=== PATIENT | male | born 1960 | race Caucasian/White ===

== ENCOUNTER 2020-04-08 12:13 | Outpatient (CLI) | payer OTHER, SELFPAY ==
--- NOTE | ~2020-04-08 | XR_ITS ---
EXAMINATION: XR knee LT min 4V DATE: 04/08/2020 12:52 INDICATION: Left knee pain. TECHNIQUE: 3 views of left knee were obtained. COMPARISON: None. FINDINGS: Bone alignment is normal. No fracture. There is mild left knee osteoarthritis. There are lo ose bodies in the knee joint measuring up to 3 mm. IMPRESSION: 1. Mild left knee osteoarthritis. 2. Left knee joint loose bodies. Reviewed, dictated and finalized at location A.
--- NOTE | ~2020-04-08 | XR_ITS ---
EXAMINATION: XR hip LT min 2V DATE: 04/08/2020 12:56 INDICATION: Left hip pain. TECHNIQUE: 2 views of left hip were obtained. COMPARISON: Left hip radiographs 08/23/2015 FINDINGS: Bone alignment is normal. No fracture. There is mild left hip osteoarthritis. There is mode rate lumbar spondylosis. IMPRESSION: 1. Mild left hip osteoarthritis. Reviewed, dictated and finalized at location A.
--- NOTE | ~2020-04-08 | XR_ITS ---
EXAMINATION: XR knee RT min 4V DATE: 04/08/2020 12:52 INDICATION: Right knee pain. TECHNIQUE: 3 views of right knee were obtained. COMPARISON: None. FINDINGS: Bone alignment is normal. No fracture. There is mild tricompartmental osteoarthritis. No kn ee joint effusion. IMPRESSION: 1. Mild right knee osteoarthritis. Reviewed, dictated and finalized at location A.
== END 2020-04-08 12:14 | disposition home or self-care (01) ==
PROVIDERS: PCP Internal Medicine; Visit Provider Internal Medicine
DX: M25.552 Pain in left hip (principal); M25.562 Pain in left knee; M25.561 Pain in right knee
CPT/HCPCS: 73502; 73564

== ENCOUNTER 2020-05-12 09:40 | Outpatient (CLI) | payer OTHER, SELFPAY ==
--- NOTE | ~2020-05-12 | XR_ITS ---
XR knee LT min 4V 05/12/2020 10:40 Indication: Left knee pain Procedure: 4 views left knee Comparison: 04/08/2020 Findings: Mild osteoarthritis of the left knee. No fracture or traumatic malalignment. No significant joint effusion. No foreign bodies. Impression: 1: Mild osteoarthritis of the left knee. Reviewed, dictated and finalized at location A. 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
== END 2020-05-12 09:41 | disposition home or self-care (01) ==
LOC: CHSLAB 09:42
PROVIDERS: PCP Internal Medicine; Visit Provider Orthopaedic Surgery
DX: M25.562 Pain in left knee (principal)
CPT/HCPCS: 73564

== ENCOUNTER → 2022-10-27 08:34 | Outpatient (CLI) | payer OTHER, SELFPAY ==
--- NOTE | ~2022-10-27 | CT_ITS ---
EXAMINATION: CT sinus wo con DATE: 10/27/2022 08:47 INDICATION: Chronic sinusitis TECHNIQUE: Computed tomography (CT) of the paranasal sinuses was performed without intravenous contra st. The dose-length product was 308.32 mGy-cm. Automated exposure control and iterative reconstructio n technique were employed. COMPARISON: None FINDINGS: Sinuses are pneumatized. Minimal mucosal thickening of the left maxillary antrum. Remainder of the sinuses are unremarkable.. Leftward nasal septal deviation. Ostiomeatal units are patent. Mas toids are pneumatized. IMPRESSION: 1. Mild left maxillary sinus disease. Reviewed, dictated and finalized at location L.
== END ==
PROVIDERS: PCP Otolaryngology; Visit Provider Otolaryngology
DX: J32.0 Chronic maxillary sinusitis (principal)
CPT/HCPCS: 70486

== ENCOUNTER 2022-12-28 15:22 | Outpatient (CLI) | payer OTHER, SELFPAY ==
--- NOTE | 2022-12-28 15:47 | ECG_ITS ---
Measurements Intervals [place] Rate: 54 P: 35 AK: 190 QRS: -20 QRSD: 109 T: 29 QT: 398 QTc: 380 Interpretive Statements SINUS BRADYCARDIA DELAYED PRECORDIAL R/S TRANSITION BASELINE ARTIFACT- I, II, III, AVR, AVL, AVF BORDERLINE ECG ABNORMAL ECG NO PREVIOUS ECG AVAILABLE FOR COMPARISON Electronically Signed On 12-28-2022 16:01:26 CDT by Noé Teresa D.O.
== END 2022-12-28 15:23 | disposition home or self-care (01) ==
LOC: ANHSURGERY 15:26
PROVIDERS: PCP Internal Medicine; Visit Provider Otolaryngology
DX: E78.5 Hyperlipidemia, unspecified (principal); Z01.818 Encounter for other preprocedural examination; R94.31 Abnormal electrocardiogram [ECG] [EKG]
CPT/HCPCS: 93005

== ENCOUNTER 2023-01-03 00:24 | Day surgery (SDC) | payer OTHER, SELFPAY ==
[2022-12-26 08:41] VITALS: BMI 28.7
--- NOTE | 2022-12-26 08:44 | PC.NURSE ---
Report to the Outpatient Waiting Room, entrance under the green pavilion located off [facility], at time 7:30 on date 01/03/23. Planned Procedure Time: 9:30. Time changes happen often and if your time is changed the preop area will call you the afternoon before. - You and your visitor will be asked to self-screen and do not enter if you have any COVID symptoms. - A mask is optional within the hospital at this time. Patients may have clear liquids (water, carbonated beverages, clear teas, apple juice) until 3 hours prior to surgery (6:30) with a maximum of 20 ounces. - No food from midnight until time of surgery Take the following medications with a SIP of water the morning of surgery: TYLENOL IF NEEDED DO NOT STOP ANY OF YOUR OTHER PRESCRIPTION MEDICATIONS PRIOR TO SURGERY ?EXCEPT THE FOLLOWING Medications to discontinue per physician: VITAMINS/SUPPLEMENTS Date to take last dose: 12/30/[address] COLLINS REGARDING DICLOFENAC Please no make-up, nail nauruan, hairspray, perfume, deodorant, or body powder the day of surgery. No jewelry (including any body piercings) or valuables the day of surgery, leave them at home. Please take a shower or bath the night before, or the morning of, surgery with an antibacterial soap. Wear comfortable, loose fitting clothing. - Jewelry must be removed prior to entering the operating room. Rings and piercings that are not removed may be cut off. - The hospital will not accept responsibility for valuables. - Please leave all valuables, including medications, at home the day of surgery. If you are going home after surgery, a licensed driver/sales workers must drive you home. - NO public transportation without another adult if you receive anesthesia. - We recommend that an adult stay with you for 24 hours following discharge. - We also recommend that you do not drive, make important decision, drink alcoholic beverages, or take any drugs that were not prescribed by your health care provider for at least 24 hours after your discharge time. Follow any additional instructions given to you from your surgeon. If you or anyone in your household have experienced Covid symptoms in the past week, please notify your surgeon or the nurse liaison at the phone number below for possible testing. Telephone instructions given to PT - RAFFAELE PATEL and asked if any additional questions and then verbalized understanding. Patient advised to call surgeon office or pre surgery nurse liaison [phone] if any additional questions.
--- NOTE | 2023-01-02 17:57 | PM.IMHP ---
H&P: HPI History of Present Illness Date/Time: 01/02/23 17:57 Chief Complaint: Septal deviation turbinate hypertrophy nasal obstruction nasal congestion chronic sinusitis Narrative: planned procedure Review of Systems Review of Systems: All systems reviewed & are unremarkable except as noted in HPI and below [facility] Past Medical History Medical History (Updated 09/07/22 @ 18:42 by Roddy Paez MD) Abscess, appendix 2016 or 2017 Left knee pain Seasonal allergies Wears glasses Family History Family History Other Family history of allergic disorder Social History Social History (Updated 09/07/22 @ 11:22 by SEBASTIEN Perla) Smoking packs per day: 0.5 Smoking cigarettes per day: 10.0 Years smoked: 3 Smoking pack-years: 1.50 Smoking status: Former smoker Tobacco type: cigarettes Smoking end date: 06/19/20 Alcohol intake: never Substance use: never Substance use type: does not use Lack of Transportation: No Lack of Food: Never True Current Housing: I Have Housing Concerned About Future Housing: No Difficulty Paying Gas/Electric Bills: No Difficulty Paying for Meds: No Currently Unemployed: No Education: Bachelor's Degree Difficulty w/ Childcare or Family Care: No Living arrangements: with family Occupation/Education: occupation Gender identity (if verbalized by the patient): Male Spiritual care concerns: No Meds Home Medications and Allergies Home Medications Medication Instructions Recorded Confirmed Type acetaminophen 650 mg 800 mg PO Q12H 09/07/22 12/26/22 History tablet,extended release ascorbate calcium (vitamin C) 500 500 mg PO DAILY 09/07/22 12/26/22 History mg tablet diclofenac sodium 75 mg 75 mg PO BID 09/07/22 12/26/22 History tablet,delayed release montelukast 10 mg tablet 10 mg PO DAILY 09/07/22 12/26/22 History multivitamin (Daily Multi-Vitamin 1 tablet PO DAILY 09/07/22 12/26/22 History tablet) simvastatin 10 mg tablet 10 mg PO DAILY 09/07/22 12/26/22 History Allergies Allergy/AdvReac Type Severity Reaction Status Date / Time No Known Allergies Allergy Verified 12/26/22 08:50 Exam Narrative: septal deviation turbinate hypertrophy Assessment and Plan Assessment and plan (1) Chronic sinusitis: Code(s): J32.9 - Chronic sinusitis, unspecified Status: Acute Assessment and Plan: plan or image guided left-sided maxillary antrostomy without tissue removal endoscopic assisted septoplasty inferior turbinate reduction with outfracture bilaterally. Risks were discussed including bleeding infection CSF leak brain brain damage change in vision chronic eye drainage blindness septal perforation failure to resolve symptoms need for further procedures of other sinuses become disease. Crusting for persistent follow-up need for follow-up. Time-out for time off school inherent risk narcotic use. (2) Recurrent sinusitis: Code(s): J32.9 - Chronic sinusitis, unspecified Status: Acute (3) Hypertrophy of both inferior nasal turbinates: Code(s): J34.3 - Hypertrophy of nasal turbinates Status: Acute (4) Nasal septal deviation: Code(s): J34.2 - Deviated nasal septum Status: Acute (5) Nasal congestion: Code(s): R09.81 - Nasal congestion Status: Acute (6) Nasal obstruction: Code(s): J34.89 - Other specified disorders of nose and nasal sinuses Status: Acute
[2023-01-03] VITALS (11 sets, daily range): BP systolic 111–138; BP diastolic 59–93; PULSE 43–69; RESP 12–18; TEMP 36.4–36.6; O2SAT 92–99
[2023-01-03] MEDS: LACTATED RINGERS 1,000 ML 30 ML IV CONT ×2 (06:49→10:52)
[2023-01-03] MEDS: ACETAMINOPHEN 500 MG TABLET 1000 MG PO (06:50)
--- NOTE | 2023-01-03 07:35 | P.PNAN_ITS ---
Anes - Initial Pre Proc Eval Procedure: Operation Date: 01/03/23 07:30 Proposed Procedures p Image Guided Bilateral Inferior Turbinectomy with Outfracture, Left Maxillary Antrostomy Without Tissue Removal - Roddy Paez MD s Endoscopic Septoplasty - Roddy Paez MD Date/Time: 01/03/23 07:35 Surgeon: Roddy Paez MD Pre Op Diagnosis: Chr Sinusitis Patient Data Age: 62 Gender: M Height: 1.87 m Weight: 100 kg Allergies Allergy/AdvReac Type Severity Reaction Status Date / Time No Known Allergies Allergy Verified 12/26/22 08:50 Home Medications Medication Instructions Recorded Confirmed Type acetaminophen 650 mg 800 mg PO Q12H 09/07/22 12/26/22 History tablet,extended release ascorbate calcium (vitamin C) 500 500 mg PO DAILY 09/07/22 12/26/22 History mg tablet diclofenac sodium 75 mg 75 mg PO BID 09/07/22 12/26/22 History tablet,delayed release montelukast 10 mg tablet 10 mg PO DAILY 09/07/22 12/26/22 History multivitamin (Daily Multi-Vitamin 1 tablet PO DAILY 09/07/22 12/26/22 History tablet) simvastatin 10 mg tablet 10 mg PO DAILY 09/07/22 12/26/22 History Patient hx anesthesia problems: none Family hx anesthesia problems: none Results Review: All pre-operative results and documents have been reviewed as part of the pre- operative evaluation. [facility] Past Medical History Medical History Abscess, appendix 2016 or 2017 Left knee pain Seasonal allergies Wears glasses Family History Family History Other Family history of allergic disorder Social History Social History Smoking packs per day: 0.5 Smoking cigarettes per day: 10.0 Years smoked: 3 Smoking pack-years: 1.50 Smoking status: Former smoker Tobacco type: cigarettes Smoking end date: 06/19/20 Alcohol intake: never Substance use: never Substance use type: does not use Lack of Transportation: No Lack of Food: Never True Current Housing: I Have Housing Concerned About Future Housing: No Difficulty Paying Gas/Electric Bills: No Difficulty Paying for Meds: No Currently Unemployed: No Education: Bachelor's Degree Difficulty w/ Childcare or Family Care: No Living arrangements: with family Occupation/Education: occupation Gender identity (if verbalized by the patient): Male Spiritual care concerns: No Anes - Eval Final PreProcedure Day of Procedure 01/03/23 07:35 Patient weight: overweight Heart: regular rate and rhythm Lungs: clear to auscultation Airway: Mallampati scale class II Neurological: alert and oriented Last oral intake: >/= 8 hours ASA classification: II Emergent: no Anesthetic plan: proceed Anesthesia type and monitoring: general ETT and standard monitoring Results Review: All pre-operative results and documents have been reviewed as part of the pre- operative evaluation. Informed Consent: The patient's anesthetic plan and its attendant risks and benefits were discussed with the patient/family/POA. Questions were solicited and answers provided to the satisfaction of the patient/family/POA.
--- NOTE | 2023-01-03 07:38 | WPDHPUPDATE1 ---
History and Physical Update Update Date/Time: 01/03/23 07:38 History and Physical has been reviewed, including an updated exam of the patient. There are NO changes in the patient's condition. Risks, benefits, and alternatives have been discussed and questions answered. Patient agrees to proceed with procedure.
[2023-01-03] MEDS: ceFAZolin 2 GM/D5W 50 ML 2 GM/50 ML BAG IVPB (07:43)
[2023-01-03] MEDS: LIDO 1%/EPINEPHRINE 1:100,000 50 ML VIAL 30 ML INFILTRATE (08:32)
[2023-01-03] MEDS: OXYMETAZOLINE HCL 0.05% NAS 15 ML BTL (*BKC) 1 SPRAY NASAL (09:00)
--- NOTE | 2023-01-03 10:23 | W.PM.PROC2 ---
Procedure Note - Detailed Date of Procedure 01/03/23 Pre-op Diagnosis Chr Sinusitis Septal deviation turbinate hypertrophy Post-op Diagnosis Same Procedure Performed endoscopic assisted septoplasty bilateral inferior turbinate reduction with outfracture left-sided image guided endoscopic maxillary antrostomy Surgeon Roddy Paez MD Anesthesia General Indications see above Findings her red distally deviated septum about 2 hours to corrected perforations on both side likely non opposing. Large turbinates well reduced no complications with that. The left maxillary antrostomy went well wide opening was able to view inside minimally diseased mucosa nothing major. Description of Procedure Patient identified consent verified preop. Patient brought to the operating room. Time-out performed. General anesthesia induced endotracheal tube secured airway. Patient prepped draped position procedure confirmed 2nd time-out performed. Afrin-soaked pledgets placed for 5 minutes then removed. Image guidance initiated and confirmed. 0 degree endoscope utilized bilateral septum injected with about 10 cc 1% lidocaine 1 100,000 parts epinephrine. Left-sided very anterior Lockwood incision made. Left nasal septal flap elevated I tears along the spur likely linear no mucosa lost osteotome utilized to cross over. Right-sided elevated nasal septal flap elevated tears as it was very scarred down likely from the fractures he has had throughout his life. Likely not of the tears perforations were concomitant opposing each other. Deviated septum removed combination osteotome Drew Peterson forceps Tamela forceps. Lockwood incision then closed 4 interrupted 5 0 fast gut sutures. The only perforations that are actually near each other were several cm behind nasal sill. There again not opposing. Turbinate has were cauterized to ensure no bleeding occurred. Maxillary antrostomy on the left side performed under image guidance turbinate was medialized double ball tip probe utilized after the sinus antrostomy performed with backbiter straight through cut microdebrider. Bleeding was minimal. Minimal disease located within the sinus in terms of the mucosa being slightly disease polypoid. Leija splints then placed bilaterally sutured anteriorly using a 3-0 mattressed nylon suture. Patient tolerated the procedure well no complications. I performed all dictated portions of procedure. Care the patient back to Anesthesiology. Total blood loss about 25 cc. Patient taken to PACU. of note no pack was placed in the left middle meatus as well to stent turbinate medial. Estimated Blood Loss -25.0 Drains No Packing Yes ( Nova pack left middle meatus) Pathology None sent Complications No immediate complications Condition Stable Disposition PACU [facility] Billing Surgery - Charge Forward: Surgery Billing
[2023-01-03] MEDS: fentaNYL CITRATE INJ (*CRX) 100 MCG/2 ML VIAL 25 MCG IV PUSH ×6 (10:27→12:58)
[2023-01-03] MEDS: ONDANSETRON INJ 4 MG/2 ML VIAL IV PUSH (10:50)
[2023-01-03] MEDS: oxyCODONE HCL (*CRX) 5 MG TAB IR PO (11:40)
== END 2023-01-03 13:20 | disposition home or self-care (01) ==
PROVIDERS: PCP Internal Medicine; Visit Provider Otolaryngology
PROC: (CPT 31256; principal; 2023-01-03 07:30)
PROC: (CPT 30520; 2023-01-03 07:30)
DX: J32.9 Chronic sinusitis, unspecified (principal); J34.2 Deviated nasal septum; J34.3 Hypertrophy of nasal turbinates; J34.89 Other specified disorders of nose and nasal sinuses; R09.81 Nasal congestion; Z87.891 Personal history of nicotine dependence
CPT/HCPCS: 31256; 61782; 30520; 30140; A9270; J0690; J1100; J2250; J2270; J2371; J2405; J2704; J3010; J7120

== ENCOUNTER 2023-05-17 10:27 | Outpatient (CLI) | payer OTHER, SELFPAY ==
--- NOTE | ~2023-05-17 | XR_ITS ---
EXAMINATION: XR ribs LT 2V w CXR 2V DATE: 05/17/2023 11:00 INDICATION: Left posterior chest pain. TECHNIQUE: Frontal and lateral views of the chest and 2 views on 3 radiographs of the left ribs were obtained. COMPARISON: Chest 2 views 06/25/2018 FINDINGS: CHEST TWO VIEWS: There is mild atelectasis at left lung base. No pleural effusion or pneumothorax. Th e heart size is normal. LEFT RIBS: There is no rib fracture. IMPRESSION: 1. No rib fracture. 2. Mild atelectasis at left lung base. Reviewed, dictated and finalized at location A. 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
--- NOTE | ~2023-05-17 | XR_ITS ---
EXAMINATION: XR thoracic spine 3V DATE: 05/17/2023 10:59 INDICATION: Left posterior chest pain. TECHNIQUE: 3 views of thoracic spine were obtained. COMPARISON: Chest 2 views 06/25/2018 FINDINGS: There is 7 degrees levocurvature of thoracic spine. Vertebral body heights are normal. Ther e is mild to moderately decreased disc height at multiple levels in mid and lower thoracic spine. The re are endplate osteophytes at most levels. There is multilevel facet joint osteoarthritis. IMPRESSION: 1. Moderate thoracic spondylosis. Reviewed, dictated and finalized at location A. T COMPUTER
== END 2023-05-17 10:28 | disposition home or self-care (01) ==
LOC: CHSIMG 10:30
PROVIDERS: PCP Internal Medicine; Visit Provider Internal Medicine
DX: R07.81 Pleurodynia (principal); J98.11 Atelectasis; M43.04 Spondylolysis, thoracic region
CPT/HCPCS: 71046; 71100; 72072

== ENCOUNTER 2023-05-30 01:03 | Day surgery (SDC) | payer OTHER, SELFPAY ==
[2023-05-29 07:52] VITALS: BMI 31.0
--- NOTE | 2023-05-29 07:53 | PC.NURSE ---
Report to the Outpatient Waiting Room, entrance under the green pavilion located off [facility], at time _0600_ on date _[id number]_. Planned Procedure Time: _0730_. Time changes happen often and if your time is changed the preop area will call you the afternoon before. - You and your visitor will be asked to self-screen and do not enter if you have any COVID symptoms. - A mask is optional within the hospital at this time. Patients may have clear liquids (water, carbonated beverages, clear teas, apple juice) until 3 hours prior to surgery with a maximum of 20 ounces. - No food from midnight until time of surgery Take the following medications with a SIP of water the morning of surgery: Duloxetine DO NOT STOP ANY OF YOUR OTHER PRESCRIPTION MEDICATIONS PRIOR TO SURGERY ?EXCEPT THE FOLLOWING Medications to discontinue per physician None Date to take last dose Please no make-up, nail irish, hairspray, perfume, deodorant, or body powder the day of surgery. No jewelry (including any body piercings) or valuables the day of surgery, leave them at home. Please take a shower or bath the night before, or the morning of, surgery with an antibacterial soap. Wear comfortable, loose fitting clothing. - Jewelry must be removed prior to entering the operating room. Rings and piercings that are not removed may be cut off. - The hospital will not accept responsibility for valuables. - Please leave all valuables, including medications, at home the day of surgery. If you are going home after surgery, a licensed front loader residential driver must drive you home. - NO public transportation without another adult if you receive anesthesia. - We recommend that an adult stay with you for 24 hours following discharge. - We also recommend that you do not drive, make important decision, drink alcoholic beverages, or take any drugs that were not prescribed by your health care provider for at least 24 hours after your discharge time. Follow any additional instructions given to you from your surgeon. If you or anyone in your household have experienced Covid symptoms in the past week, please notify your surgeon or the nurse liaison at the phone number below for possible testing. Telephone instructions given to _Lewis__and asked if any additional questions and then verbalized understanding. Patient advised to call surgeon office or pre surgery nurse liaison [phone] if any additional questions.
--- NOTE | 2023-05-29 17:46 | PM.IMHP ---
H&P: HPI History of Present Illness Date/Time: 05/29/23 17:46 Chief Complaint: Dysphagia year G large uvula Narrative: planned procedure Review of Systems Review of Systems: All systems reviewed & are unremarkable except as noted in HPI and below PMFSH Past Medical History Medical History Abscess, appendix 2016 or 2017 Left knee pain Seasonal allergies Wears glasses Family History Family History Other Family history of allergic disorder Social History Social History (Updated 05/17/23 @ 13:59 by Anyi Herndon) Social History: Caffeine-daily Smoking packs per day: 0.5 Smoking cigarettes per day: 10.0 Years smoked: 3 Smoking pack-years: 1.50 Smoking status: Former smoker Tobacco type: cigarettes Smoking end date: 07/30/20 Alcohol intake: never Substance use: never Substance use type: does not use Lack of Transportation: No Lack of Food: Never True Current Housing: I Have Housing Concerned About Future Housing: No Difficulty Paying Gas/Electric Bills: No Difficulty Paying for Meds: No Currently Unemployed: No Education: Bachelor's Degree Difficulty w/ Childcare or Family Care: No Living arrangements: with family Occupation/Education: occupation Gender identity (if verbalized by the patient): Male Spiritual care concerns: No Meds Home Medications and Allergies Home Medications Medication Instructions Recorded Confirmed Type diclofenac sodium 75 mg 75 mg PO BID 09/07/22 05/29/23 History tablet,delayed release multivitamin (Daily Multi-Vitamin 1 tablet PO DAILY 09/07/22 05/29/23 History tablet) simvastatin 10 mg tablet 10 mg PO DAILY 09/07/22 05/29/23 History duloxetine 30 mg capsule,delayed 30 mg PO DAILY 05/17/23 05/29/23 History release (Cymbalta) Allergies Allergy/AdvReac Type Severity Reaction Status Date / Time No Known Allergies Allergy Verified 05/29/23 07:48 Exam Narrative: large uvula Assessment and Plan Assessment and plan (1) Dysphagia: Code(s): R13.10 - Dysphagia, unspecified Status: Acute Assessment and Plan: plan or uvulectomy risks were discussed including bleeding infection swallowing pain damage to any structure of the clavicles by myself a resolve symptoms need for further procedures nasal drainage getting caught on the operative side. Time-out for time off school inherent risk of narcotic use. Damage any structures the induction remains anesthesia. (2) Uvular hypertrophy: Code(s): K13.79 - Other lesions of oral mucosa Status: Acute
[2023-05-30] VITALS (9 sets, daily range): BP systolic 105–133; BP diastolic 71–92; PULSE 56–76; RESP 12–20; TEMP 36–36.1; O2SAT 96–100
[2023-05-30] MEDS: LACTATED RINGERS 1,000 ML 30 ML IV CONT (06:50)
--- NOTE | 2023-05-30 06:54 | WPDANESEPPF ---
Anes - Initial Pre Proc Eval Procedure: Operation Date: 05/30/23 07:30 Proposed Procedures p Uvulectomy - Roddy Paez MD Date/Time: 05/30/23 06:54 Surgeon: Roddy Paez MD Pre Op Diagnosis: Dysphagia Patient Data Age: 62 Gender: M Height: 1.87 m Weight: 108.2 kg Allergies Allergy/AdvReac Type Severity Reaction Status Date / Time No Known Allergies Allergy Verified 05/29/23 07:48 Home Medications Medication Instructions Recorded Confirmed Type diclofenac sodium 75 mg 75 mg PO BID 09/07/22 05/29/23 History tablet,delayed release multivitamin (Daily Multi-Vitamin 1 tablet PO DAILY 09/07/22 05/29/23 History tablet) simvastatin 10 mg tablet 10 mg PO DAILY 09/07/22 05/29/23 History duloxetine 30 mg capsule,delayed 30 mg PO DAILY 05/17/23 05/29/23 History release (Cymbalta) Patient hx anesthesia problems: none Family hx anesthesia problems: none Results Review: All pre-operative results and documents have been reviewed as part of the pre-operative evaluation. [facility] Past Medical History Medical History Abscess, appendix 2016 or 2017 Left knee pain Seasonal allergies Wears glasses Family History Family History Other Family history of allergic disorder Social History Social History Social History: Caffeine-daily Smoking packs per day: 0.5 Smoking cigarettes per day: 10.0 Years smoked: 3 Smoking pack-years: 1.50 Smoking status: Former smoker Tobacco type: cigarettes Smoking end date: 07/30/20 Alcohol intake: never Substance use: never Substance use type: does not use Lack of Transportation: No Lack of Food: Never True Current Housing: I Have Housing Concerned About Future Housing: No Difficulty Paying Gas/Electric Bills: No Difficulty Paying for Meds: No Currently Unemployed: No Education: Bachelor's Degree Difficulty w/ Childcare or Family Care: No Living arrangements: with family Occupation/Education: occupation Gender identity (if verbalized by the patient): Male Spiritual care concerns: No Anes - Eval Final PreProcedure Day of Procedure 12/12/23 06:54 Patient weight: overweight Heart: regular rate and rhythm Lungs: clear to auscultation Airway: Mallampati scale class II Neurological: alert and oriented Last oral intake: >/= 8 hours ASA classification: II Emergent: no Anesthetic plan: proceed Anesthesia type and monitoring: general ETT and standard monitoring Results Review: All pre-operative results and documents have been reviewed as part of the pre-operative evaluation. Informed Consent: The patient's anesthetic plan and its attendant risks and benefits were discussed with the patient/family/POA. Questions were solicited and answers provided to the satisfaction of the patient/family/POA.
--- NOTE | 2023-05-30 07:12 | WPDHPUPDATE1 ---
History and Physical Update Update Date/Time: 05/30/23 07:12 History and Physical has been reviewed, including an updated exam of the patient. There are NO changes in the patient's condition. Risks, benefits, and alternatives have been discussed and questions answered. Patient agrees to proceed with procedure.
--- NOTE | 2023-05-30 08:05 | W.PM.PROC2 ---
Procedure Note - Detailed Date of Procedure 05/30/23 Pre-op Diagnosis Dysphagia, uvular hypertrophy Post-op Diagnosis Same Procedure Performed uvulectomy Surgeon Roddy Paez MD Anesthesia General Indications see above Findings very large uvula elongated Description of Procedure patient identified site verified. Patient are. Time-out performed. General anesthesia induced endotracheal tube secured. Patient prepped draped position procedure confirmed. Second time-out performed. McIvor mouth gag inserted opened uvula removed Bovie electrocautery setting 10 cut on the mucosa coag on the deeper tissues muscular uvula was spared. Was sutured with mattress and then 5 interrupted 3-0 Vicryl sutures. Great care was taken to ensure there be no scar formation on the posterior/ nasal aspect. Patient tolerated the procedure well blood loss 1. McIvor mouth gag removed. Care the patient given anesthesiology. Patient taken to PACU. Estimated Blood Loss 1 Drains No Packing No Pathology None sent Complications No immediate complications Condition Stable Disposition PACU [facility] Billing Surgery - Charge Forward: Surgery Billing
[2023-05-30] MEDS: fentaNYL CITRATE INJ (*CRX) 100 MCG/2 ML VIAL 25 MCG IV PUSH ×4 (08:35→08:45)
[2023-05-30] MEDS: oxyCODONE (*CRX) 5 MG/5 ML ORAL SOLN IR PO (09:01)
== END 2023-05-30 09:52 | disposition home or self-care (01) ==
PROVIDERS: PCP Internal Medicine; Visit Provider Otolaryngology
PROC: (CPT 42140; principal; 2023-05-30 07:30)
DX: K13.79 Other lesions of oral mucosa (principal); Z87.891 Personal history of nicotine dependence
CPT/HCPCS: 42140; 88304; A9270; J0330; J1100; J2405; J2704; J3010; J7120

== ENCOUNTER 2024-05-29 09:54 | Outpatient (CLI) | payer OTHER, SELFPAY ==
--- NOTE | ~2024-05-29 | XR_ITS ---
XR hand LT min 3V Ordering provider: Harjit Wesley MD History: . Bilateral Hand pain,NKI,STIFFNESS,LT 1ST [facility] SWELLING/PAIN . Comparison: None. FINDINGS: BONES: No acute fracture or dislocation. JOINT SPACES: Narrowing of the distal interphalangeal joints. Osteoarthritic changes of the first car pometacarpal joint. SOFT TISSUES: Unremarkable. IMPRESSION: No acute osseous abnormality left hand. Polyarticular osteoarthritic changes. Reviewed, dictated and finalized at location A. [employer] DESIGN[employer]
--- NOTE | ~2024-05-29 | XR_ITS ---
XR hand RT min 3V Ordering provider: Harjit Wesley MD History: . Bilateral Hand pain,NKI,STIFFNESS,LT 1ST [facility] SWELLING/PAIN . Comparison: None. FINDINGS: BONES: No acute fracture or dislocation. JOINT SPACES: Narrowing of the distal interphalangeal joints. Osteoarthritic changes of the first car pometacarpal joint. SOFT TISSUES: Normal. IMPRESSION: No acute osseous abnormality right hand. Polyarticular osteoarthritic changes. Reviewed, dictated and finalized at location A. [facility]
== END 2024-05-29 09:55 | disposition home or self-care (01) ==
LOC: CHSIMG 09:57
PROVIDERS: PCP Internal Medicine; Visit Provider Internal Medicine
DX: M79.641 Pain in right hand (principal); M79.642 Pain in left hand
CPT/HCPCS: 73130

== ENCOUNTER 2024-07-18 11:01 | Outpatient (CLI) | payer OTHER, SELFPAY ==
--- NOTE | 2024-07-18 11:00 | ECG_ITS ---
Test Date: 2024-07-18 11:21:40 Measurements Intervals [place] Rate: 75 P: 21 WI: 174 QRS: -34 QRSD: 125 T: 30 QT: 372 QTc: 416 Interpretive Statements SINUS RHYTHM MARKED LEFT AXIS DEVIATION [QRS AXIS < -30] MODERATE INTRAVENTRICULAR CONDUCTION DELAY [110+ ms QRS DURATION] WARNING: DATA QUALITY MAY AFFECT INTERPRETATION No previous ECG available for comparison Electronically Signed On 07-18-2024 11:49:40 INSPECTOR WEIGHTS [employer] MEASURES by Ilan Espinoza M.D.
--- OUTSIDE RECORDS SUMMARY | 2024-07-18 12:06 | XMS_ITS | Clinical Summary ---
Author Organization [facility] Address [address] [place] [address]. [place], [place] [id number] [place] [id number] Care Team Providers Care Licensing Director Name Role Phone Harjit Wesley MD Primary Care Provider [phone] Allergies No known active allergies Medications diclofenac EC 75 MG tablet Take 1 tablet by mouth daily. 11/01/2021 Active montelukast (SINGULAIR) 10 MG tablet Take 1 tablet by mouth daily. 02/25/2022 Active sildenafil (REVATIO) 20 MG tablet Take 1 tablet by mouth as needed. 02/25/2022 Active simvastatin (ZOCOR) 10 MG tablet Take 1 tablet by mouth daily. 02/25/2022 Active Active Problems Problem Noted Date Diagnosed Date Infectious tenosynovitis 12/23/2021 Cellulitis of left hand 12/17/2021 Family History Medical History Relation Comments No Known Problems Father No Known Problems Mother Relation Status Comments Father Mother Social History Tobacco Use Types Packs/Day Years Used Date Smoking Tobacco: Former Cigarettes 0.5 2 Smokeless Tobacco: Former Quit: 11/27/2019 Alcohol Use Standard Drinks/Week Comments Never 0 (1 standard drink = 0.6 oz pur e alcohol) Sex and Gender Information Value Date Recorded Sex Assigned at Not on file Legal Sex Male 8:53 PM CDT Gender Identity Not on file Sexual Orientation Not on file Last Filed Vital Signs Vital Sign Reading Time Taken Comments Blood Pressure 112/69 12/22/2021 8:23 AM CDT Pulse 70 12/22/2021 8:23 AM CDT Temperature 36.2 ??C (97.2 ??F) 12/22/2021 8:23 AM CD T Respiratory Rate 18 12/22/2021 8:23 AM CDT Oxygen Saturation 96% 12/22/2021 8:23 AM CDT Inhaled Oxygen Concentration - - Weight 103.9 kg (229 lb) 03/01/2022 4:19 PM CDT Height 185.4 cm (6' 1 ) 03/01/2022 4:19 PM CDT Body Mass Index 30.21 03/01/2022 4:19 PM CDT Plan of Treatment Health Maintenance Due Date Last Done Comments Colorectal Cancer Screening Colonoscopy (10 Years) 1960 Annual Physical 1964 Hepatitis C 12/15/1979 DTaP, Tdap and Td Vaccines ( 1 - Tdap) 1980 Zoster Vaccines (1 of 2) 12/15/2011 COVID-19 Vaccine (3 - 2023-2 5 season) 2024 12/17/2021, 11/26/2021 Influenza Adult (#1) 2024 RSV Immunization or 60+ Years (1 - 1-dose 75+ series) 2036 Meningococcal B Vaccine Aged Out No l onger eligible based on patient's age to complete this topic Meningococcal Vaccine Aged Out No joaquim lety eligible based on patient's age to complete this topic Pneumococcal Vaccine: Pediatrics (0 to 5 Years) and At-Risk Patients (6 to 64 Years) Aged Out No longer eligible b ased on patient's age to complete this topic RSV Immunizations Under 20 Months Aged Out No longer eligible b ased on patient's age to complete this topic Goals Goal Patient Goal Type Associated Problems Recent Progress Patient-Stated? Author Health - patient able to perform ADLs independently General No Jenna Miner, [facility] Insurance [facility] Advance Directives * Full Code (Latest Code Status on File) Date Activated Date Inactivated Comments 12/17/2021 10:15 PM 12/22/2021 6:49 PM Care Teams Licensing Director Relationship Specialty Start Date End Date Harjit Wesley MD [address] [place] [address] PCP - General INTERNAL MEDICINE 12/17/21
== END 2024-07-18 11:02 | disposition home or self-care (01) ==
LOC: ANHSURGERY 11:08
PROVIDERS: PCP Internal Medicine; Visit Provider Orthopaedic Surgery
DX: E78.5 Hyperlipidemia, unspecified (principal); Z01.818 Encounter for other preprocedural examination
CPT/HCPCS: 93005

== ENCOUNTER 2024-07-24 00:30 | Day surgery (SDC) | payer OTHER, SELFPAY ==
[2024-07-11 14:30] VITALS: BMI 30.5
--- NOTE | 2024-07-11 14:31 | PC.NURSE ---
Report to the Outpatient Waiting Room, entrance under the green pavilion located off [facility], at time _1130_ on date _[id number]_. Planned Procedure Time: _130pm_.? Time changes happen often and if your time is changed the preop area will call you the afternoon before. - You and your visitor will be asked to self-screen and do not enter if you have any COVID symptoms. Please call surgeon if you need to reschedule. - A mask is optional within the hospital at this time. Patients may have clear liquids (water, carbonated beverages, clear teas, apple juice) until 3 hours prior to surgery with a maximum of 20 ounces. - No food from midnight until time of surgery and no smoking. This includes no chewing gum, candy or mints. Take only the following medications with a SIP of water on the morning of surgery: ___Duloxetine__ DO NOT STOP ANY OF YOUR OTHER PRESCRIPTION MEDICATIONS PRIOR TO SURGERY EXCEPT THE FOLLOWING Medications to discontinue per physician ___Multivitamin Date to take last lnxj___[id number]___ Stop Diclofenac as was instructed by Dr Tapia's office. Please no make-up, nail samoan, hairspray, perfume, deodorant, or body powder the day of surgery.? No jewelry (including any body piercings) or valuables the day of surgery, leave them at home.? Please take a shower or bath the night before, or the morning of, surgery with an antibacterial soap.? Wear comfortable, loose fitting clothing. - Jewelry must be removed prior to entering the operating room.? Rings and piercings that are not removed may be cut off. - The hospital will not accept responsibility for valuables.? - Please leave all valuables, including medications, at home the day of surgery. If you are going home after surgery, a licensed flag car driver must drive you home.? - NO public transportation without another adult if you receive anesthesia. - We recommend that an adult stay with you for 24 hours following discharge. - We also recommend that you do not drive, make important decision, drink alcoholic beverages, or take any drugs that were not prescribed by your health care provider for at least 24 hours after your discharge time. Follow any additional instructions given to you from your surgeon. Telephone instructions given to __Santhosh___and asked if any additional questions and then verbalized understanding. Patient advised to call surgeon office or pre surgery nurse liaison [phone] if any additional questions.
--- NOTE | 2024-07-23 13:09 | P.PNAN_ITS ---
Alessandras - Eval Pre Procedure Procedure: Operation Date: 07/24/24 13:30 Proposed Procedures p Left Knee Arthroscopy - Matty Tapia MD Date/Time: 07/23/24 13:09 Pre Op Diagnosis: left knee medial meniscus tear Patient Data Age: 63 Gender: M Height: 1.85 m Weight: 105 kg Allergies Allergy/AdvReac Type Severity Reaction Status Date / Time No Known Allergies Allergy Verified 07/11/24 14:23 Home Medications ?Medication ?Instructions ?Recorded ?Confirmed ?Type diclofenac sodium 75 mg 75 mg PO BID 09/07/22 07/11/24 History tablet,delayed release multivitamin (Daily Multi-Vitamin 1 tablet PO DAILY 09/07/22 07/11/24 History tablet) simvastatin 10 mg tablet 10 mg PO DAILY 09/07/22 07/11/24 History duloxetine 60 mg capsule,delayed 60 mg PO DAILY 07/11/24 07/11/24 History release chlorhexidine gluconate 4 % 1 applic topical ONCE #237 mL 07/17/24 Rx topical liquid (Hibiclens) Patient hx anesthesia problems: none Family hx anesthesia problems: none Results Review: All pre-operative results and documents have been reviewed as part of the pre- operative evaluation. [facility] Past Medical History Medical History Hyperlipidemia Uvular hypertrophy Dysphagia Abscess, appendix 2016 or 2017 Wears glasses Seasonal allergies Left knee pain Surgical History Surgical History H/O sinus surgery History of tonsillectomy Family History Family History Other Family history of allergic disorder Social History Social History Social History: Caffeine-daily Smoking packs per day: 0.5 Smoking cigarettes per day: 10.0 Years smoked: 8 Smoking pack-years: 4.00 Smoking status: Former smoker Tobacco type: cigarettes Smoking end date: 07/11/20 Alcohol intake: never Substance use: never Substance use type: does not use Lack of Transportation: No Lack of Food: Never True Current Housing: I Have Housing Concerned About Future Housing: No Difficulty Paying Gas/Electric Bills: No Difficulty Paying for Meds: No Currently Unemployed: No Education: Bachelor's Degree Difficulty w/ Childcare or Family Care: No Living arrangements: with family Occupation/Education: occupation Gender identity (if verbalized by the patient): Male Spiritual care concerns: No Comments From 07/18/24 SINUS RHYTHM MARKED LEFT AXIS DEVIATION [QRS AXIS < -30] MODERATE INTRAVENTRICULAR CONDUCTION DELAY [110+ ms QRS DURATION] WARNING: DATA QUALITY MAY AFFECT INTERPRETATION SR VR 75 Exam Day of Procedure 07/23/24 13:09 Patient weight: overweight
[2024-07-24] VITALS (10 sets, daily range): BP systolic 129–170; BP diastolic 82–96; PULSE 63–72; RESP 10–16; TEMP 36.3–36.6; O2SAT 94–100
--- OUTSIDE RECORDS SUMMARY | 2024-07-24 00:33 | XMS_ITS | Clinical Summary ---
Author Organization [facility] Address [facility] [place] [address] Care Team Providers Care Respiratory Technician Name Role Phone Harjit Wesley MD Primary Care Provider [phone] Allergies No known active allergies Medications diclofenac [...] perform ADLs independently General No Jenna Miner, [facility] Insurance [facility] Advance Directives * Full Code (Latest Code Status on File) Date Activated Date Inactivated Comments 12/17/2021 10:15 PM 12/22/2021 6:49 PM Care Teams Respiratory Technician Relationship Specialty Start Date End Date Harjit Wesley MD [address] [place] [address] PCP - General INTERNAL MEDICINE 12/17/21
--- NOTE | 2024-07-24 07:03 | WPDHPUPDATE1 ---
History and Physical Update Update Date/Time: 07/24/24 07:03 History and Physical has been reviewed, including an updated exam of the patient. There are NO changes in the patient's condition. Risks, benefits, and alternatives have been discussed and questions answered. Patient agrees to proceed with procedure.
--- NOTE | 2024-07-24 11:59 | WPDANESEPPF ---
Anes - Initial Pre Proc Eval Procedure: Operation Date: 07/24/24 13:30 Proposed Procedures p Left Knee Arthroscopy - Matty Tapia MD Date/Time: 07/24/24 11:59 Surgeon: Matty Tapia MD Pre Op Diagnosis: left knee medial meniscus tear Patient Data Age: 63 Gender: M Height: 1.85 m Weight: 105 kg Allergies Allergy/AdvReac Type Severity Reaction Status Date / Time No Known Allergies Allergy Verified 07/11/24 14:23 Home Medications ?Medication ?Instructions ?Recorded ?Confirmed ?Type diclofenac sodium 75 mg 75 mg PO BID 09/07/22 07/11/24 History tablet,delayed release multivitamin (Daily Multi-Vitamin 1 tablet PO DAILY 09/07/22 07/11/24 History tablet) simvastatin 10 mg tablet 10 mg PO DAILY 09/07/22 07/11/24 History duloxetine 60 mg capsule,delayed 60 mg PO DAILY 07/11/24 07/11/24 History release chlorhexidine gluconate 4 % 1 applic topical ONCE #237 mL 07/17/24 Rx topical liquid (Hibiclens) Patient hx anesthesia problems: none Family hx anesthesia problems: none Results Review: All pre-operative results and documents have been reviewed as part of the pre-operative evaluation. [facility] Past Medical History Medical History Hyperlipidemia Uvular hypertrophy Dysphagia Abscess, appendix 2016 or 2017 Wears glasses Seasonal allergies Left knee pain Surgical History Surgical History H/O sinus surgery History of tonsillectomy Family History Family History Other Family history of allergic disorder Social History Social History Social History: Caffeine-daily Smoking packs per day: 0.5 Smoking cigarettes per day: 10.0 Years smoked: 3 Smoking pack-years: 1.50 Smoking status: Former smoker Tobacco type: cigarettes Smoking end date: 07/30/20 Alcohol intake: never Substance use: never Substance use type: does not use Lack of Transportation: No Lack of Food: Never True Current Housing: I Have Housing Concerned About Future Housing: No Difficulty Paying Gas/Electric Bills: No Difficulty Paying for Meds: No Currently Unemployed: No Education: Bachelor's Degree Difficulty w/ Childcare or Family Care: No Living arrangements: with family Occupation/Education: occupation Gender identity (if verbalized by the patient): Male Spiritual care concerns: No Anes - Eval Final PreProcedure Day of Procedure 07/24/24 11:59 Patient weight: overweight Heart: regular rate and rhythm Lungs: clear to auscultation Airway: Mallampati scale class II Neurological: alert and oriented Last oral intake: >/= 8 hours ASA classification: II Emergent: no Anesthetic plan: proceed Anesthesia type and monitoring: general LMA and standard monitoring Results Review: All pre-operative results and documents have been reviewed as part of the pre-operative evaluation. Informed Consent: The patient's anesthetic plan and its attendant risks and benefits were discussed with the patient/family/POA. Questions were solicited and answers provided to the satisfaction of the patient/family/POA.
[2024-07-24] MEDS: CELECOXIB 200 MG CAPSULE PO (12:30)
[2024-07-24] MEDS: LACTATED RINGERS 1,000 ML 30 ML IV CONT (12:30)
[2024-07-24] MEDS: ACETAMINOPHEN 500 MG TABLET 1000 MG PO (12:30)
[2024-07-24] MEDS: ceFAZolin 2 GM/D5W 50 ML 2 GM/50 ML BAG IVPB (12:50)
[2024-07-24] MEDS: BUPivacaine HCL 0.5% PF 30 ML VIAL INFILTRATE (12:50)
--- NOTE | 2024-07-24 13:55 | W.PM.PROC2 ---
Procedure Note - Detailed Date of Procedure 07/24/24 Pre-op Diagnosis left knee medial meniscus tear Post-op Diagnosis Same Procedure Performed LEFT KNEE SCOPE Surgeon Matty Tapia MD Anesthesia General Description of Procedure PATIENT WAS TAKEN TO THE OR. LEFT LEG WAS PREPPED AND DRAPED STERILE. TROCARS WERE PLACED IN THE USUAL FASHION. CAMERA WAS INTRODUCED. THERE WAS SEVERE CHONDROMALACIA TO THE PATELLA FEMORAL JOINT. THERE WAS A LARGE LOOSE BODY IN THE SUPRA PATELLA POUCH. THERE WAS A LOT OF SYNOVITIS IN ALL COMPARTMENTS. THE MEDIAL COMPARTMENT SHOWED SEVERE CHONDROMALACIA TO THE MEDIAL FEMORAL CONDYLE. THERE WAS FULL THICKNESS DEFECT TO A LARGE AREA OF THE MEDIAL FEMORAL CONDYLE. A SHAVER WAS USED TO PREFORM A CHONDROPLASTY. THERE WAS A COMPLEX MEDIAL MENISCUS TEAR. THE TEAR WAS RESECTED WITH A BITER AND A SHAVER DOWN TO A SMOOTH BASE. ABOUT 40% OF THE MENISCUS WAS INVOLVED. THE ACL WAS INTACT. THE LATERAL MENISCUS WAS NOT TORN. THE LATERAL COMPARTMENT HAD MINIMAL CHONDROMALACIA. A SYNOVECTOMY WAS PREFORMED. THE PATELLO FEMORAL JOINT UNDERWENT CHONDROPLASTY. THERE WAS GRADE 4 CHONDROMALACIA IN PART OF THE TROCHLEA. SYNOVECTOMY WAS PREFORMED IN THE SUPERIOR MEDIAL COMPARTMENT. THE LOOSE BODY WAS REMOVED. THE WOUNDS WERE APPROXIMATED WITH 4.0 NYLON. STERILE DRESSING WAS APPLIED. PATIENT WAS EXTUBATED. Estimated Blood Loss 5 Complications No immediate complications Condition Stable Disposition PACU
[2024-07-24] MEDS: oxyCODONE HCL (*CRX) 5 MG TAB IR PO (15:10)
== END 2024-07-24 16:20 | disposition home or self-care (01) ==
PROVIDERS: PCP Internal Medicine; Visit Provider Orthopaedic Surgery
PROC: (CPT 29870; principal; 2024-07-24 13:30)
DX: M23.332 Other meniscus derangements, other medial meniscus, left knee (principal); M65.862 Other synovitis and tenosynovitis, left lower leg; M94.262 Chondromalacia, left knee; Z87.891 Personal history of nicotine dependence
CPT/HCPCS: 29881; 29876; A9270; J0690; J1100; J2003; J2250; J2405; J2704; J3010; J7120

== ENCOUNTER 2024-08-13 13:27 | Outpatient (CLI) | payer OTHER, SELFPAY ==
--- NOTE | 2024-08-13 | ECHO_ITS ---
Patient Info Name: Santhosh Rodriguez Age: 63 years : 1960 Gender: Male Ht: 72 in Wt: 234 lbs BSA: 2.35 m2 HR: 87 bpm BP: 125 / 80 mmHg Heart Rhythm: Sinus Rhythm Technical Quality: Fair Exam Date: 08/13/2024 2:13 PM Exam Location: Echo Lab Patient Status: Outpatient Admit Date: 08/13/2024 Staff Ordering Physician: UNKNOWN, DOCTOR Asparagus Cutter: Anamaria Fernandez RDCS Attending Provider: UNKNOWN, DOCTOR Exam Type: CA echo doppler color flow Study Info Indications R94.31 - Abnormal electrocardiogram ECG EKG Complete two-dimensional, color flow and Doppler transthoracic echocardiogram is performed. Summary 1. Complete two-dimensional, color flow and Doppler transthoracic echocardiogram is performed. 2. Normal left ventricular size thickness and systolic function without wall motion abnormality. 3. Modestly enlarged left atrium. 4. No valvular dysfunction. 5. Sinus rhythm. Left Ventricle Left ventricular chamber dimension is normal. Left ventricular systolic function is normal, estimated at 60-65%. The left ventricular diastolic function is normal. Right Ventricle Right ventricular chamber dimension is normal. Left Atria Left atrial chamber dimension is mildly enlarged. Right Atria Right atrial chamber dimension is normal. Aortic Valve The aortic valve is normal. Pulmonic Valve The pulmonic valve is normal. Mitral Valve The mitral valve has normal leaflets. Tricuspid Valve The tricuspid valve leaflets are normal. Pericardium/Pleural The pericardium appears normal. Aorta The aortic root size at the sinus of Valsalva is normal. Left Ventricular Outflow Tract Name Value Normal LVOT 2D LVOT Diameter 2.4 cm LVOT Doppler LVOT Peak Gradient 7 mmHg LVOT Mean Gradient 3 mmHg LVOT VTI 21 cm LVOT VTI/AV VTI Ratio 0.9 LVOT Stroke Volume 97 ml LVOT CO 7.9 l/min LVOT CI 3.4 l/min/m2 Pulmonic Valve Name Value Normal RVOT Doppler RVOT Peak Gradient 3 mmHg PV Doppler PV Peak Gradient 5 mmHg Mitral Valve Name Value Normal MV Doppler MV Decel Jerauld 426 cm/s2 MV PHT 49 ms MV Area (PHT) 4.5 cm2 4.0-5.0 MV Diastolic Function MV E Peak Velocity 71 cm/s MV A Peak Velocity 55 cm/s MV E/A 1.3 MV Decel Time 167 ms Tricuspid Valve Name Value Normal TV Regurgitation Doppler TR Peak Velocity 180 cm/s TR Peak Gradient 13 mmHg Estimated PAP/RSVP RA Pressure 10 mmHg <=5 PA Systolic Pressure 23 mmHg <36 RV Systolic Pressure 23 mmHg <36 Aorta Name Value Normal Ascending Aorta Ao Root Diameter (MM) 4.1 cm Ao Root Diam Index (MM) 1.8 cm/m2 Aortic Valve Name Value Normal AV Doppler AV Peak Velocity 150 cm/s AV Peak Gradient 9 mmHg AV Mean Gradient 4 mmHg AV VTI 24 cm AV Area (Cont Eq VTI) 4.0 cm2 >=3.0 AV Area (Cont Eq Mikey) 4.0 cm2 AV Regurgitation 2D LVOT Area 4.7 cm2 Ventricles Name Value Normal LV Dimensions 2D/MM IVS Diastolic Thickness (2D) 0.8 cm 0.6-1.0 LVID Diastole (2D) 5.7 cm 4.2-5.8 LVIW Diastolic Thickness (2D) 0.8 cm 0.6-1.0 LVID Systole (2D) 3.5 cm 2.5-4.0 LVOT Diameter 2.4 cm LV Mass (2D Cubed) 174.47 g 88.00-224.00 LV Mass Index (2D Cubed) 74 g/m2 49-115 Relative Wall Thickness (2D) 0.29 LV Fractional Shortening/Ejection Fraction 2D/MM LV Fractional Shortening (2D) 39 % 25-43 LV EF (2D Teicholz) 69 % 52-72 LV Diastolic Volume (4C MOD) 122 ml LV EF (4C MOD) 61 % LV Diastolic Volume (2C MOD) 108 ml LV EF (2C MOD) 69 % LV Diastolic Volume (BP MOD) 118 ml 62-150 LV Diastolic Volume Index (BP MOD) 50 ml/m2 34-74 LV Systolic Volume (BP MOD) 40 ml 21-61 LV Systolic Volume Index (BP MOD) 17 ml/m2 11-31 LV EF (BP MOD) 66 % 52-72 LV Diastolic Length (4C) 7.9 cm LV Systolic Length (4C) 6.5 cm LV Stroke Volume (4C MOD) 75 ml Atria Name Value Normal LA Dimensions LA Dimension (MM) 4.6 cm 3.0-4.1 LA Volume (4C A-L) 89 ml LA Volume (BP A-L) 77 ml RA Dimensions RA Area (4C) 19.8 cm2 <=18.0 Report Signatures
--- OUTSIDE RECORDS SUMMARY | 2024-08-13 15:26 | XMS_ITS | Clinical Summary ---
Author Organization [facility] Address [facility] [place] [address] Care Team Providers Care Bread Racker Name Role Phone Harjit Wesley MD Primary Care Provider [phone] Allergies No known active allergies Medications diclofenac [...] 70 12/22/2021 8:23 AM CDT Temperature 36.2 C (97.2 F) 12/22/2021 8:23 AM CDT Respiratory Rate 18 12/22/2021 8:23 AM CDT [...] (1 of 2) 12/15/2011 COVID-19 Vaccine (3 2023-2 5 season) 2024 12/17/2021, 11/26/2021 Influenza [...] perform ADLs independently General No Jenna Miner, [facility] Insurance [facility] Advance Directives * Full Code (Latest Code Status on File) Date Activated Date Inactivated Comments 12/17/2021 10:15 PM 12/22/2021 6:49 PM Care Teams Bread Racker Relationship Specialty Start Date End Date Harjit Wesley MD [address] [place] [address] PCP - General INTERNAL MEDICINE 12/17/21
== END 2024-08-13 13:28 | disposition home or self-care (01) ==
PROVIDERS: PCP Internal Medicine
DX: R94.31 Abnormal electrocardiogram [ECG] [EKG] (principal)
CPT/HCPCS: 93306

== ENCOUNTER 2024-09-09 09:13 | Outpatient (CLI) | payer OTHER, SELFPAY ==
--- OUTSIDE RECORDS SUMMARY | 2024-09-09 10:08 | XMS_ITS | Clinical Summary ---
Author Organization [facility] Address [facility] [place] [address] Care Team Providers Care Finish Machine Tender Name Role Phone Harjit Wesley MD Primary Care Provider Allergies No known active allergies Medications diclofenac [...] perform ADLs independently General No Jenna Miner, [facility] Insurance [facility] Advance Directives * Full Code (Latest Code Status on File) Date Activated Date Inactivated Comments 12/17/2021 10:15 PM 12/22/2021 6:49 PM Care Teams Finish Machine Tender Relationship Specialty Start Date End Date Harjit Wesley MD [address] [place] [address] PCP - General INTERNAL MEDICINE 12/17/21
--- NOTE | 2024-09-09 11:00 | NEURO_ITS ---
Impression: # Complains of left hand weakness. ? # Left Carpal Tunnel Syndrome. ? # Left ulnar neuropathy across the elbow. ? # Mildly abnormal needle/EMG exam In left 1st dorsal interosseous and abductor digiti minimi muscles. Nerve Conduction Studies Anti Sensory Summary Table ?Stim Site NR Peak (ms) P-T Amp (?V) Site1 Site2 Delta-P (ms) Dist (cm) Mikey (m/s) Left Median Anti Sensory (2-3nd Digit) Wrist ? 3.4 14.6 Wrist 2-3nd Digit 3.4 14.0 41 Wrist ? 3.8 12.1 Wrist 2-3nd Digit 3.4 14.0 41 Left Radial Anti Sensory (Base 1st Digit) Wrist ? 2.2 17.4 Wrist Base 1st Digit 2.2 0.0 Left Ulnar Anti Sensory (5th Digit) Wrist ? 2.5 6.0 Wrist 5th Digit 2.5 14.0 56 Motor Summary Table ?Stim Site NR Onset (ms) O-P Amp (mV) Site1 Site2 Delta-0 (ms) Dist (cm) Mikey (m/s) Left Median Motor (Abd Poll Brev) Wrist ? 4.5 1.4 Elbow Wrist 5.1 30.0 59 Elbow ? 9.6 1.9 Left Ulnar Motor (Abd Dig Minimi) Wrist ? 2.4 5.9 A Elbow Wrist 6.4 32.0 50 A Elbow ? 8.8 3.1 B Elbow Wrist 4.7 26.0 55 B Elbow ? 7.1 4.1 F Wave Studies ?NR F-Lat (ms) L-R F-Lat (ms) Left Median (Mrkrs) (Abd Poll Brev) ? 32.74 Left Ulnar (Mrkrs) (Abd Dig Min) ? 31.48 EMG ?Side Muscle Nerve Root Ins Act Fibs Amp Dur Recrt Comment Left 1stDorInt Ulnar C8-T1 Incr Nml Nml >12ms +1 Left Ext Indicis Radial (Post Int) C7-8 Nml Nml Nml Nml Nml Left Ext Digitorum Radial (Post Int) C7-8 Nml Nml Nml Nml Nml Left BrachioRad Radial C5-6 Nml Nml Nml Nml Nml Left PronatorTeres Median C6-7 Nml Nml Nml Nml Nml Left Abd Poll Brev Median C8-T1 Nml Nml Nml >12ms +1 Left ABD Dig Min Ulnar C8-T1 Incr Nml Nml >12ms +1 Left Abd Poll Long Radial (Post Int) C7-8 Nml Nml Nml Nml Nml Left FlexPolLong Median (Ant Int) C7-8 Nml Nml Nml Nml Nml MTDD
== END 2024-09-09 09:14 | disposition home or self-care (01) ==
LOC: ANHNEURO 09:14
PROVIDERS: PCP Internal Medicine; Visit Provider Plastic Surgery
DX: G56.02 Carpal tunnel syndrome, left upper limb (principal); G56.22 Lesion of ulnar nerve, left upper limb
CPT/HCPCS: 95886; 95909

== ENCOUNTER 2025-03-18 14:33 | Emergency (ER) | payer OTHER, SELFPAY ==
[2025-03-18] VITALS (7 sets, daily range): BP systolic 103–141; BP diastolic 62–88; PULSE 80–91; RESP 16–23; TEMP 36.2–37; O2SAT 93–98
--- NOTE | ~2025-03-18 | CT_ITS ---
Santhosh Rodriguez EXAMINATION: CT abdomen pelvis w con COMPARISON: None HISTORY: generalized abdominal pain TECHNIQUE: Axial images were obtained through the abdomen, pelvis post administration of IV contrast. Oral contrast was also administered. Coronal reconstruction images were obtained from the axial views. CT scan performed using dose optimization techniques including the following automated exposure control; adjustment of mA and/or kV; use of iterative reconstruction technique. Automatic exposure control was used to reduce radiation dose. Permanent radiation dose record is archived to PACS. FINDINGS: CT abdomen: LUNG BASES: The lung bases are clear. The visualized portions of the heart and pericardium are unremarkable. LIVER: Unremarkable, liver contours intact, no lesions. SPLEEN: Unremarkable. KIDNEYS: Right Kidney: Right kidney midpole renal calculus 3 mm, no hydronephrosis. Left Kidney: Left kidney midpole renal cyst 1 x 1 cm, lower pole 2 mm calculus, no hydronephrosis. ADRENAL GLANDS: Unremarkable. PANCREAS: Unremarkable. GALLBLADDER/BILIARY: Unremarkable. No biliary dilatation. STOMACH AND ESOPHAGUS: Visualized stomach and esophagus within normal limits. BOWEL/MESENTERY: Moderate fecal content, no colitis or diverticulitis. Appendix not identified, no inflammation surrounding the cecum. There are dilated loops of small bowel the largest measuring 3.6 cm with thickened loops of small bowel noted in the right lower quadrant. There are decompressed small bowel loops noted in the pelvis. ADENOPATHY/RETROPERITONEUM: No lymphadenopathy. AORTA/VASCULATURE: Normal caliber aorta. FREE FLUID OR FREE AIR: None. CT pelvis: SOLID ORGANS/REPRODUCTIVE: Unremarkable. BLADDER: The bladder appears distended. OSSEOUS STRUCTURES: No acute osseous abnormality.No suspicious lesions. OVERLYING SOFT TISSUES: Right small fat-containing umbilical hernia. Small fat- containing left inguinal hernia. Moderate fat-containing right inguinal hernia with minimal fluid but no bowel. IMPRESSION: 1. Dilated thickened loops of small bowel concerning for small bowel obstruction. Follow-up is recommended to assess. Reviewed, dictated and finalized at location P. IMPRESSION: 1. Dilated thickened loops of small bowel concerning for small bowel obstructio n. Follow-up is recommended to assess.
--- NOTE | 2025-03-18 14:40 | ED.ABDPAIN ---
HPI - Abdominal Pain General Chief Complaint: Abdominal Pain <Krissy Schultz APRN - Last Filed: 03/18/25 14:49> Stated Complaint: abdominal pain <Krissy Schultz APRN - Last Filed: 03/18/25 14:49> Time Seen by Provider: 03/18/25 14:44 <Krissy Schultz APRN - Last Filed: 03/18/25 14:49> Focused HPI: Patient is a 64-year-old male who presents to the ER with complaints of nausea and abdominal pain for the past 4 days. He reports he has taken a stool softener with no relief of symptoms. Patient denies any urinary symptoms, recent fevers, vomiting, or diarrhea. He endorses a history of an appendectomy, but denies any other relevant medical history. GENERAL: Well-appearing, well-nourished, and in no acute distress. HEAD: Normocephalic, atraumatic. CHEST: Clear to auscultation. ?No respiratory distress. HEART: Regular rate and rhythm.? NEURO: ?Alert and oriented x3. ABD: + BS, generalized tenderness Patient screened in triage and initial orders placed.? ?Additional care and disposition to be based upon?diagnostic testing and treatment. <Krissy Schultz APRN - Last Filed: 03/18/25 14:49> History of Present Illness HPI narrative: I agree the move HPI <Álvaro Tinajero MD - Last Filed: 03/20/25 08:06> Related Data Home Medications: Home Medications ?Medication ?Instructions ?Recorded ?Confirmed ?Last Taken ?Type diclofenac sodium 75 mg 75 mg PO BID 09/07/22 09/10/24 Unknown History tablet,delayed release multivitamin (Daily Multi-Vitamin 1 tablet PO DAILY 09/07/22 09/10/24 Unknown History tablet) simvastatin 10 mg tablet 10 mg PO DAILY 09/07/22 09/10/24 Unknown History duloxetine 60 mg capsule,delayed 60 mg PO DAILY 07/11/24 09/10/24 Unknown History release <Krissy Schultz APRN - Last Filed: 03/18/25 14:49> Allergies/Adverse Reactions: Allergies Allergy/AdvReac Type Severity Reaction Status Date / Time No Known Allergies Allergy Verified 03/18/25 14:39 <Krissy Schultz APRN - Last Filed: 03/18/25 14:49> Review of Systems Review of Systems: All systems reviewed & are unremarkable except as noted in HPI and below <Álvaro Tinajero MD - Last Filed: 03/20/25 08:06> [facility] Past Medical History Medical History: Medical History Hyperlipidemia Uvular hypertrophy Dysphagia Abscess, appendix 2016 or 2017 Wears glasses Seasonal allergies Left knee pain <Krissy Schultz APRN - Last Filed: 03/18/25 14:49> Surgical History Surgical History: Surgical History H/O sinus surgery History of tonsillectomy <Krissy Schultz APRN - Last Filed: 03/18/25 14:49> Family History Family History: Family History Other Family history of allergic disorder <Krissy Schultz APRN - Last Filed: 03/18/25 14:49> Social History Social History: Social History Social History: Caffeine-daily Smoking packs per day: 0.5 Smoking cigarettes per day: 10.0 Years smoked: 3 Smoking pack-years: 1.50 Smoking status: Former smoker Tobacco type: cigarettes Smoking end date: 07/30/20 Alcohol intake: never Substance use: never Substance use type: does not use Lack of Transportation: No Lack of Food: Never True Current Housing: I Have Housing Concerned About Future Housing: No Difficulty Paying Gas/Electric Bills: No Difficulty Paying for Meds: No Currently Unemployed: No Education: Bachelor's Degree Difficulty w/ Childcare or Family Care: No Living arrangements: with family Occupation/Education: occupation Gender identity (if verbalized by the patient): Male Spiritual care concerns: No <Krissy Schultz APRN - Last Filed: 03/18/25 14:49> Exam Narrative: APPEARANCE: Uncomfortable appearing HEAD: normocephalic, atraumatic. EYES: PERRLA/EOMI, conjunctivae clear. NOSE: Normal no drainage EARS:TMS clear with good light reflex. THROAT: Pharynx clear, no exudate. NECK: Supple. No adenopathy, no masses. RESPIRATORY: Airway patent, respirations nonlabored. Clear to auscultation bilaterally, no rales, rhonchi, wheezing. CARDIOVASCULAR: Regular rate and rhythm without murmurs rubs or gallops. ABDOMINAL: Soft, nontender, nondistended, normal bowel sounds MUSCULOSKELETAL: Moves all extremities. Strength/ROM intact, No edema, No calf tenderness. NEURO: Alert. Cranial nerves II through XII intact. Good gait. Good coordination SKIN: Warm, dry. Normal Color <Álvaro Tinajero MD - Last Filed: 03/20/25 08:06> Course Vital Signs Vital signs: Vital Signs Temperature 98.6 F 03/18/25 14:34 Pulse Rate 89 03/18/25 14:34 Respiratory Rate 16 03/18/25 14:34 Blood Pressure 141/88 H 03/18/25 14:34 Pulse Oximetry 98 03/18/25 14:34 Oxygen Delivery Room Air 03/18/25 14:34 Temperature 97.2 F L 03/18/25 20:30 Pulse Rate 91 03/18/25 20:30 Respiratory Rate 23 H 03/18/25 20:30 Blood Pressure 137/70 03/18/25 20:30 Pulse Oximetry 96 03/18/25 20:30 Oxygen Delivery Room Air 03/18/25 14:34 <Krissy Schultz APRN - Last Filed: 03/18/25 14:49> Vital Signs Temperature 98.6 F 03/18/25 14:34 Pulse Rate 89 03/18/25 14:34 Respiratory Rate 16 03/18/25 14:34 Blood Pressure 141/88 H 03/18/25 14:34 Pulse Oximetry 98 03/18/25 14:34 Oxygen Delivery Room Air 03/18/25 14:34 Temperature 97.2 F L 03/18/25 20:30 Pulse Rate 91 03/18/25 20:30 Respiratory Rate 23 H 03/18/25 20:30 Blood Pressure 137/70 03/18/25 20:30 Pulse Oximetry 96 03/18/25 20:30 Oxygen Delivery Room Air 03/18/25 14:34 <Álvaro Tinajero MD - Last Filed: 03/20/25 08:06> MDM - Abdominal Pain MDM Narrative Medical decision making narrative: 64-year-old male presents emergency department for evaluation for abdominal discomfort. Patient is tolerating p.o. patient is passing stool. CT scan was concerning for possible bowel obstruction. I did discuss admission for the bowel obstruction but patient preferred to try IV fluids and pain meds. Patient care was signed out to the overnight physician visitor services information assistant. After rehydration patient did feel improved and was ultimately discharged home. Patient was educated on reasons to return to the emergency department. All questions concerns were addressed. <Álvaro Tinajero MD - Last Filed: 03/20/25 08:06> Differential Diagnosis Differential diagnosis: Likely abdominal pain, acute appendicitis, calculus of kidney, constipation, diverticulitis, gastroenteritis, pancreatitis and small bowel obstruction <Álvaro Tinajero MD - Last Filed: 03/20/25 08:06> Lab Data Attestation: I reviewed the patient's lab results. <Álvaro Tinajero MD - Last Filed: 03/20/25 08:06> Result diagrams: 03/18/25 15:07 03/18/25 15:07 <Krissy Schultz APRN - Last Filed: 03/18/25 14:49> Labs: Lab Results 03/18/25 03/18/25 03/18/25 Range/Units 14:57 15:07 16:17 WBC 8.1 (4.5-10.0) K/mm3 RBC 4.30 L (4.6-6.20) M/mm3 Hgb 13.8 L (14.0-18.0) g/dL Hct 40.0 L (42.0-52.0) % MCV 93.0 (80-100) fl MCH 32.1 (26-34) pg MCHC 34.5 (32-36) g/dl RDW 12.1 (11.5-14.5) % Plt Count 209 (150-375) k/mm3 MPV 9.2 (7.4-10.4) fl Immature Gran % (Auto) Not Reportable Neut % (Auto) Not Reportable Lymph % (Auto) Not Reportable [place] % (Auto) Not Reportable Eos % (Auto) Not Reportable Baso % (Auto) Not Reportable Lymph # (Auto) Not Reportable [place] # (Auto) Not Reportable Eos # (Auto) Not Reportable Baso # (Auto) Not Reportable Abs Immat Gran (auto) Not Reportable Absolute Neuts (auto) Not Reportable Absolute Nucleated RBC Not Reportable Total Counted 100 Neutrophils % (Manual) 59 (46-73) % Band Neutrophils % 4 (0-6) % Lymphocytes % (Manual) 18 (18-44) % Monocytes % (Manual) 19 H (3-9) % Nucleated RBC % Not Reportable Abs Neuts (Manual) 5.10 (1.3-6.7) K/mm3 Abs Lymphs (Manual) 1.45 (1.1-4.5) K/mm3 Abs Monocytes (Manual) 1.53 H (0.1-0.90) K/mm3 Platelet Estimate Adequate (Adequate) Schistocytes None seen Sodium 133 L (137-145) mmol/L Potassium 4.3 (3.4-5.0) mmol/L Chloride 101 (98-107) mmol/L Carbon Dioxide 24 (22-30) mmol/L Anion Gap 8 (4-12) mmol/L BUN 18 (9-20) mg/dL Creatinine 0.71 (0.7-1.3) mg/dL Estim Creat Clear Calc 105 ml/min Estimated GFR > 60 (59 - ) Glucose 111 H (65-110) mg/dL Calcium 8.8 (8.4-10.2) mg/dL Total Bilirubin 1.1 (0.2-1.3) mg/dL AST 36 (17-59) U/L ALT 42 (6-50) U/L Alkaline Phosphatase 89 (38-126) U/L Total Protein 7.3 (6.3-8.2) g/dL Albumin 4.0 (3.5-5.1) g/dL Lipase 27 (23-300) U/L Urine Color Cancelled Urine Appearance Cancelled Urine pH Cancelled Ur Specific [place] Cancelled Urine Protein Cancelled Urine Glucose (UA) Cancelled Urine Ketones Cancelled Ur Blood (Man) Cancelled Urine Nitrate Cancelled Urine Bilirubin Cancelled Urine Urobilinogen Cancelled Add Ur Microanalysis Cancelled Leukocyte Esterase Rfl Cancelled Urine RBC Cancelled Urine WBC Cancelled Urine WBC Clumps Cancelled Ur Squamous Epith Cells Cancelled Ur Transition Epith Cell Cancelled Ur Renal Epithelial Cell Cancelled [place] Biurate Crystals Cancelled Calcium Carbonate Cryst Cancelled Calcium Phosphate Cryst Cancelled Calcium Oxalate Crystal Cancelled Leucine Crystals Cancelled Cystine Crystals Cancelled Uric Acid Crystals Cancelled Triple Phos Crystals Cancelled Sulfonamide Crystals Cancelled Cholesterol Crystals Cancelled Talc Crystals Cancelled Tyrosine Crystals Cancelled Hippuric Acid Crystals Cancelled Bilirubin Crystals Cancelled Other Crystals Cancelled Amorphous Sediment Cancelled Other Sediment Cancelled Urine Bacteria Cancelled Urine Casts Cancelled Cellular Casts Cancelled Epithelial Casts Cancelled Fatty Casts Cancelled Hyaline Casts Cancelled Granular Casts Cancelled Waxy Casts Cancelled Broad Casts Cancelled RBC Casts Cancelled WBC Casts Cancelled Urine Starch Cancelled Urine Mucus Cancelled Urine Trichomonas Cancelled Urine Yeast (Budding) Cancelled Ur Oval Fat Bodies Cancelled Sperm Presence Cancelled Urine Opiates Screen (Negative) Urine Methadone Screen (Negative) Ur Barbiturates Screen (Negative) Ur Phencyclidine Scrn (Negative) Ur Amphetamine Screen (Negative) U Benzodiazepines Scrn (Negative) Urine Cocaine Screen (Negative) U Cannabinoids Screen (Negative) Influenza A (RT-PCR) Negative (Negative) Influenza B (RT-PCR) Negative (Negative) RSV (RT-PCR) Negative (Negative) SARS-CoV-2 RNA (RT-PCR) Negative (Negative) 03/18/25 Range/Units 18:53 WBC (4.5-10.0) K/mm3 RBC (4.6-6.20) M/mm3 Hgb (14.0-18.0) g/dL Hct (42.0-52.0) % MCV (80-100) fl MCH (26-34) pg MCHC (32-36) g/dl RDW (11.5-14.5) % Plt Count (150-375) k/mm3 MPV (7.4-10.4) fl Immature Gran % (Auto) Neut % (Auto) Lymph % (Auto) [place] % (Auto) Eos % (Auto) Baso % (Auto) Lymph # (Auto) [place] # (Auto) Eos # (Auto) Baso # (Auto) Abs Immat Gran (auto) Absolute Neuts (auto) Absolute Nucleated RBC Total Counted Neutrophils % (Manual) (46-73) % Band Neutrophils % (0-6) % Lymphocytes % (Manual) (18-44) % Monocytes % (Manual) (3-9) % Nucleated RBC % Abs Neuts (Manual) (1.3-6.7) K/mm3 Abs Lymphs (Manual) (1.1-4.5) K/mm3 Abs Monocytes (Manual) (0.1-0.90) K/mm3 Platelet Estimate (Adequate) Schistocytes Sodium (137-145) mmol/L Potassium (3.4-5.0) mmol/L Chloride (98-107) mmol/L Carbon Dioxide (22-30) mmol/L Anion Gap (4-12) mmol/L BUN (9-20) mg/dL Creatinine (0.7-1.3) mg/dL Estim Creat Clear Calc ml/min Estimated GFR (59 - ) Glucose (65-110) mg/dL Calcium (8.4-10.2) mg/dL Total Bilirubin (0.2-1.3) mg/dL AST (17-59) U/L ALT (6-50) U/L Alkaline Phosphatase (38-126) U/L Total Protein (6.3-8.2) g/dL Albumin (3.5-5.1) g/dL Lipase (23-300) U/L Urine Color Urine Appearance Urine pH Ur Specific [place] Urine Protein Urine Glucose (UA) Urine Ketones Ur Blood (Man) Urine Nitrate Urine Bilirubin Urine Urobilinogen Add Ur Microanalysis Leukocyte Esterase Rfl Urine RBC Urine WBC Urine WBC Clumps Ur Squamous Epith Cells Ur Transition Epith Cell Ur Renal Epithelial Cell Scott Biurate Crystals Calcium Carbonate Cryst Calcium Phosphate Cryst Calcium Oxalate Crystal Leucine Crystals Cystine Crystals Uric Acid Crystals Triple Phos Crystals Sulfonamide Crystals Cholesterol Crystals Talc Crystals Tyrosine Crystals Hippuric Acid Crystals Bilirubin Crystals Other Crystals Amorphous Sediment Other Sediment Urine Bacteria Urine Casts Cellular Casts Epithelial Casts Fatty Casts Hyaline Casts Granular Casts Waxy Casts Broad Casts RBC Casts WBC Casts Urine Starch Urine Mucus Urine Trichomonas Urine Yeast (Budding) Ur Oval Fat Bodies Sperm Presence Urine Opiates Screen Negative (Negative) Urine Methadone Screen Negative (Negative) Ur Barbiturates Screen Negative (Negative) Ur Phencyclidine Scrn Negative (Negative) Ur Amphetamine Screen Negative (Negative) U Benzodiazepines Scrn Negative (Negative) Urine Cocaine Screen Negative (Negative) U Cannabinoids Screen Negative (Negative) Influenza A (RT-PCR) (Negative) Influenza B (RT-PCR) (Negative) RSV (RT-PCR) (Negative) SARS-CoV-2 RNA (RT-PCR) (Negative) <Krissy FreitasHarmony Schultz, [employer] MAINTENA[employer]CE WORKER - Last Filed: 03/18/25 14:49> Lab Results 03/18/25 03/18/25 03/18/25 Range/Units 14:57 15:07 16:17 WBC 8.1 (4.5-10.0) K/mm3 RBC 4.30 L (4.6-6.20) M/mm3 Hgb 13.8 L (14.0-18.0) g/dL Hct 40.0 L (42.0-52.0) % MCV 93.0 (80-100) fl MCH 32.1 (26-34) pg MCHC 34.5 (32-36) g/dl RDW 12.1 (11.5-14.5) % Plt Count 209 (150-375) k/mm3 MPV 9.2 (7.4-10.4) fl Immature Gran % (Auto) Not Reportable Neut % (Auto) Not Reportable Lymph % (Auto) Not Reportable [place] % (Auto) Not Reportable Eos % (Auto) Not Reportable Baso % (Auto) Not Reportable Lymph # (Auto) Not Reportable [place] # (Auto) Not Reportable Eos # (Auto) Not Reportable Baso # (Auto) Not Reportable Abs Immat Gran (auto) Not Reportable Absolute Neuts (auto) Not Reportable Absolute Nucleated RBC Not Reportable Total Counted 100 Neutrophils % (Manual) 59 (46-73) % Band Neutrophils % 4 (0-6) % Lymphocytes % (Manual) 18 (18-44) % Monocytes % (Manual) 19 H (3-9) % Nucleated RBC % Not Reportable Abs Neuts (Manual) 5.10 (1.3-6.7) K/mm3 Abs Lymphs (Manual) 1.45 (1.1-4.5) K/mm3 Abs Monocytes (Manual) 1.53 H (0.1-0.90) K/mm3 Platelet Estimate Adequate (Adequate) Schistocytes None seen Sodium 133 L (137-145) mmol/L Potassium 4.3 (3.4-5.0) mmol/L Chloride 101 (98-107) mmol/L Carbon Dioxide 24 (22-30) mmol/L Anion Gap 8 (4-12) mmol/L BUN 18 (9-20) mg/dL Creatinine 0.71 (0.7-1.3) mg/dL Estim Creat Clear Calc 105 ml/min Estimated GFR > 60 (59 - ) Glucose 111 H (65-110) mg/dL Calcium 8.8 (8.4-10.2) mg/dL Total Bilirubin 1.1 (0.2-1.3) mg/dL AST 36 (17-59) U/L ALT 42 (6-50) U/L Alkaline Phosphatase 89 (38-126) U/L Total Protein 7.3 (6.3-8.2) g/dL Albumin 4.0 (3.5-5.1) g/dL Lipase 27 (23-300) U/L Urine Color Cancelled Urine Appearance Cancelled Urine pH Cancelled Ur Specific [place] Cancelled Urine Protein Cancelled Urine Glucose (UA) Cancelled Urine Ketones Cancelled Ur Blood (Man) Cancelled Urine Nitrate Cancelled Urine Bilirubin Cancelled Urine Urobilinogen Cancelled Add Ur Microanalysis Cancelled Leukocyte Esterase Rfl Cancelled Urine RBC Cancelled Urine WBC Cancelled Urine WBC Clumps Cancelled Ur Squamous Epith Cells Cancelled Ur Transition Epith Cell Cancelled Ur Renal Epithelial Cell Cancelled [place] Biurate Crystals Cancelled Calcium Carbonate Cryst Cancelled Calcium Phosphate Cryst Cancelled Calcium Oxalate Crystal Cancelled Leucine Crystals Cancelled Cystine Crystals Cancelled Uric Acid Crystals Cancelled Triple Phos Crystals Cancelled Sulfonamide Crystals Cancelled Cholesterol Crystals Cancelled [place] Crystals Cancelled Tyrosine Crystals Cancelled Hippuric Acid Crystals Cancelled Bilirubin Crystals Cancelled Other Crystals Cancelled Amorphous Sediment Cancelled Other Sediment Cancelled Urine Bacteria Cancelled Urine Casts Cancelled Cellular Casts Cancelled Epithelial Casts Cancelled Fatty Casts Cancelled Hyaline Casts Cancelled Granular Casts Cancelled Waxy Casts Cancelled Broad Casts Cancelled RBC Casts Cancelled WBC Casts Cancelled Urine Starch Cancelled Urine Mucus Cancelled Urine Trichomonas Cancelled Urine Yeast (Budding) Cancelled Ur Oval Fat Bodies Cancelled Sperm Presence Cancelled Urine Opiates Screen (Negative) Urine Methadone Screen (Negative) Ur Barbiturates Screen (Negative) Ur Phencyclidine Scrn (Negative) Ur Amphetamine Screen (Negative) U Benzodiazepines Scrn (Negative) Urine Cocaine Screen (Negative) U Cannabinoids Screen (Negative) Influenza A (RT-PCR) Negative (Negative) Influenza B (RT-PCR) Negative (Negative) RSV (RT-PCR) Negative (Negative) SARS-CoV-2 RNA (RT-PCR) Negative (Negative) 03/18/25 Range/Units 18:53 WBC (4.5-10.0) K/mm3 RBC (4.6-6.20) M/mm3 Hgb (14.0-18.0) g/dL Hct (42.0-52.0) % MCV (80-100) fl MCH (26-34) pg MCHC (32-36) g/dl RDW (11.5-14.5) % Plt Count (150-375) k/mm3 MPV (7.4-10.4) fl Immature Gran % (Auto) Neut % (Auto) Lymph % (Auto) [place] % (Auto) Eos % (Auto) Baso % (Auto) Lymph # (Auto) [place] # (Auto) Eos # (Auto) Baso # (Auto) Abs Immat Gran (auto) Absolute Neuts (auto) Absolute Nucleated RBC Total Counted Neutrophils % (Manual) (46-73) % Band Neutrophils % (0-6) % Lymphocytes % (Manual) (18-44) % Monocytes % (Manual) (3-9) % Nucleated RBC % Abs Neuts (Manual) (1.3-6.7) K/mm3 Abs Lymphs (Manual) (1.1-4.5) K/mm3 Abs Monocytes (Manual) (0.1-0.90) K/mm3 Platelet Estimate (Adequate) Schistocytes Sodium (137-145) mmol/L Potassium (3.4-5.0) mmol/L Chloride (98-107) mmol/L Carbon Dioxide (22-30) mmol/L Anion Gap (4-12) mmol/L BUN (9-20) mg/dL Creatinine (0.7-1.3) mg/dL Estim Creat Clear Calc ml/min Estimated GFR (59 - ) Glucose (65-110) mg/dL Calcium (8.4-10.2) mg/dL Total Bilirubin (0.2-1.3) mg/dL AST (17-59) U/L ALT (6-50) U/L Alkaline Phosphatase (38-126) U/L Total Protein (6.3-8.2) g/dL Albumin (3.5-5.1) g/dL Lipase (23-300) U/L Urine Color Urine Appearance Urine pH Ur Specific [place] Urine Protein Urine Glucose (UA) Urine Ketones Ur Blood (Man) Urine Nitrate Urine Bilirubin Urine Urobilinogen Add Ur Microanalysis Leukocyte Esterase Rfl Urine RBC Urine WBC Urine WBC Clumps Ur Squamous Epith Cells Ur Transition Epith Cell Ur Renal Epithelial Cell Scott Biurate Crystals Calcium Carbonate Cryst Calcium Phosphate Cryst Calcium Oxalate Crystal Leucine Crystals Cystine Crystals Uric Acid Crystals Triple Phos Crystals Sulfonamide Crystals Cholesterol Crystals Talc Crystals Tyrosine Crystals Hippuric Acid Crystals Bilirubin Crystals Other Crystals Amorphous Sediment Other Sediment Urine Bacteria Urine Casts Cellular Casts Epithelial Casts Fatty Casts Hyaline Casts Granular Casts Waxy Casts Broad Casts RBC Casts WBC Casts Urine Starch Urine Mucus Urine Trichomonas Urine Yeast (Budding) Ur Oval Fat Bodies Sperm Presence Urine Opiates Screen Negative (Negative) Urine Methadone Screen Negative (Negative) Ur Barbiturates Screen Negative (Negative) Ur Phencyclidine Scrn Negative (Negative) Ur Amphetamine Screen Negative (Negative) U Benzodiazepines Scrn Negative (Negative) Urine Cocaine Screen Negative (Negative) U Cannabinoids Screen Negative (Negative) Influenza A (RT-PCR) (Negative) Influenza B (RT-PCR) (Negative) RSV (RT-PCR) (Negative) SARS-CoV-2 RNA (RT-PCR) (Negative) <Álvaro Tinajero MD - Last Filed: 03/20/25 08:06> Imaging Data Radiologist's impression: ITS Impressions Abdomen/Pelvis CT 03/18/25 17:56 IMPRESSION: 1. Dilated thickened loops of small bowel concerning for small bowel obstruction. Follow-up is recommended to assess. <Krissy Schultz APRN - Last Filed: 03/18/25 14:49> ITS Impressions Abdomen/Pelvis CT 03/18/25 17:56 IMPRESSION: 1. Dilated thickened loops of small bowel concerning for small bowel obstruction. Follow-up is recommended to assess. <Álvaro Tinajero MD - Last Filed: 03/20/25 08:06> Discharge Plan Discharge Clinical Impression: Nausea & vomiting <Krissy Schultz APRN - Last Filed: 03/18/25 14:49> Patient Disposition: Home <Krissy Schultz APRN - Last Filed: 03/18/25 14:49> Condition: Stable <Krissy Schultz APRN - Last Filed: 03/18/25 14:49> Instructions: Antibiotic Form, Clear Liquid Diet (ED) <Krissy Schultz APRN - Last Filed: 03/18/25 14:49> Additional Instructions: You were offered admission but you preferred to be discharged home. Clear liquid diet for the next 1-3 days. Zofran as needed for nausea control. Tylenol and ibuprofen for pain control. If you have any worsening symptoms and please call or return to the emergency department. Have close follow-up with her primary care physician. <Krissy Schultz APRN - Last Filed: 03/18/25 14:49> Patient Language: Hungarian <Krissy Schultz APRN - Last Filed: 03/18/25 14:49> Prescriptions: New ondansetron 4 mg tablet,disintegrating 4 mg PO Q8H PRN (Reason: nausea and vomiting) Qty: 14 0RF No Action diclofenac sodium 75 mg tablet,delayed release (DR/EC) 75 mg PO BID simvastatin 10 mg tablet 10 mg PO DAILY Patient Comments: Says takes at HS multivitamin [Daily Multi-Vitamin] Tablet 1 tablet PO DAILY duloxetine 60 mg capsule,delayed release(DR/EC) 60 mg PO DAILY hydrocodone-acetaminophen 5-325 mg tablet 1 tablet PO Q12H PRN (Reason: pain) Qty: 20 0RF <Krissy Schultz APRN - Last Filed: 03/18/25 14:49> Follow-up/Referrals: Harjit Wesley MD [Primary Care Provider, Internal Medicine] <Krissy Schultz APRN - Last Filed: 03/18/25 14:49>
--- OUTSIDE RECORDS SUMMARY | 2025-03-18 14:45 | XMS_ITS | Clinical Summary ---
Author Organization [facility] [address] Address [address] [place] [address] Care Team Providers Care Correctional Therapy Teacher Name Role Phone Harjit Wesley MD Primary Care Provider [phone] Harjit Wesley MD Unavailable [phone] Allergies No known active allergies Medications simvastatin (ZOCOR) 10 mg tablet Take 1 tablet (10 mg total) by mouth daily 02/25/[address] (VOLTAREN) 75 mg EC tablet Take 1 tablet (75 mg total) by mouth daily 11/01/[address] (CYMBALTA) 30 mg capsule Take 1 capsule (30 mg total) by mouth daily 12/09/2024 Active montelukast (SINGULAIR) 10 mg tablet Take 1 tablet (10 mg total) by mouth daily 02/25/2022 Active sildenafiL, pulm.hypertensi on, (REVATIO) 20 mg tablet Take 1 tablet (20 mg total) by mouth as needed 02/25/2022 Active ascorbic acid (vitamin C) 1,000 mg tablet Take 1 tablet (1,000 mg total) by mouth daily Active [id number] op-herb#222 (Stages Men's Multi-Vitamin) 200 mcg-300 unit-20 mcg tablet Take by mouth Active Active Problems Problem Noted Date Diagnosed Date Primary osteoarthritis of left knee 01/08/2025 Encounters Date Type Department Care Team Description 02/14/2025 Telephone [facility] [address] [place] [address] Korey Horta MD 01/08/2025 3:35 PM CDT Ancillary Procedure [facility] at [address] [phone] 01/08/2025 3:30 PM CDT Ancillary Procedure [facility] at [address] [address] 01/08/2025 3:30 PM CDT Office Visit [facility] [address] [place] [phone] Mike Ross MD Left knee pain, unspecified chronicity (Primary Dx); Chronic pain of left knee; Primary osteoarthritis of left knee; Left leg numbness 01/08/2025 Telephone [facility] [address] [place] [phone] Mike Ross MD Surgical Clearance 01/02/2025 Telephone [facility] [address] [place] [phone] Mike Ross MD from Last 3 Months Medical History Medical History Date Comments Hx Other Medical psychiatric dis order; Comments: TRW 03/24/2014 - Hx Other Medical appendixectomy; Comments: TRW 03/24/2014 - Social History Tobacco Use Types Packs/Day Years Used Date Smoking Tobacco: Former Cigarettes Tobacco Cessation:Counseling Given: Not Answered Sex and Gender Information Value Date Recorded Sex Assigned at Not on file 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 Gender Identity Not on file Sexual Orientation Not on file Obstetrics History Last Filed Vital Signs Vital Sign Reading Time Taken Comments Blood Pressure 133/91 01/08/2025 4:18 PM CDT Pulse 82 01/08/2025 4:18 PM CDT Temperature - - Respiratory Rate - - Oxygen Saturation 96% 05/01/2014 2:24 PM MAINFRAME ANALYST Inhaled Oxygen Concentration - - Weight 111.1 kg (245 lb) 01/08/2025 4:18 PM CDT Height 180.3 cm (5' 11) 01/08/2025 4:18 PM CDT Body Mass Index 34.17 01/08/2025 4:18 PM CDT Plan of Treatment Health Maintenance Due Date Last Done Comments Depression Screening 1960 Hepatitis C Screening 1960 Prostate Cancer Screening-PSA 1960 Hepatitis B Screening 12/15/1979 Regular Well Visit/Exam 18-64 12/15/1979 DTaP/Tdap/Td Vaccine (2 - Td or Tdap) 02/11/2024 02/10/2014 Colon Cancer Screening-Colonoscopy 04/03/2024 04/03/2014, 04/03/2014, 03/21/2014, Additional history exists Covid-19 Vaccine ( season) 2025 12/17/2021, 11/26/2021 Influenza Vaccine (#1) 2025 , 03/20/2023, 02/25/2022 Zoster Vaccine Completed 06/26/2020, 04/08/2020 Pneumococcal vaccine <65 Aged Out No longer eligible based on patient's age to complete this topic Procedures Procedure Name Priority Date/Time Associated Diagnosis Comments XR KNEE LEFT 4 OR MORE VIEWS Schedule Routine, Read Routine (OP Routine) 01/08/2025 4:16 PM CDT Left knee pain, unspecified chronicity XR PELVIS 1 OR 2 VIEWS Schedule Routine, Read Routine (OP Routine) 01/08/2025 4:16 PM CDT Left knee pain, unspecified chronicity COLONOSCOPY IMAGES 04/03/2014 from Last 3 Months or Most Recently Relevant to Health Maintenance Results * XR Knee Left 4 or More Views (01/08/2025 4:16 PM CDT) Anatomical Region Laterality Modality Lower Extremities, Knee Left Digital Radiography Narrative 01/08/2025 5:01 PM CDT Four views left knee shows [id number] changes medial compartment subchondral sclerosis kl grade 3 osteoarthrosis varus deformity no fractures us Mike Ross MD IMG XR PROCEDURES Final Resu lt * XR Pelvis 1 or 2 Views (01/08/2025 4:16 PM CDT) Anatomical Region Laterality Modality Body, Pelvis N/A Digital Radiogra phy Narrative 01/08/2025 5:01 PM CDT AP pelvis shows mild degenerative changes bilateral hips no fracture subluxation or dislocation Mike Ross MD IMG XR PROCEDURES Final Resu lt * COLONOSCOPY IMAGES (04/03/2014) Anatomical Region Laterality Modality Other Narrative 04/03/2014 Ordered by an unspecified provider. Historical Provider GI PROCEDURE ORDERABLES F inal Result from Last 3 Months or Most Recently Relevant to Health Maintenance Insurance [facility] Care Teams Correctional Therapy Teacher Relationship Specialty Start Date End Date Harjit Wesley MD [address] [place] [address] PCP - General Internal Medicine 08/13/24 Harjit Wesley MD [address] [place] [address] 08/13/24
[2025-03-18 15:16] LABS: Hematocrit 40.0 % (42.0-52.0); Hemoglobin 13.8 g/dL (14.0-18.0); Mean Corpuscular HGB Conc 34.5 g/dl (32-36); Mean Corpuscular Hemoglobin 32.1 pg (26-34); Mean Corpuscular Volume 93.0 fl (80-100); Platelet Count Result 209 k/mm3 (150-375); Red Blood Count 4.30 M/mm3 (4.6-6.20); White Blood Count 8.1 K/mm3 (4.5-10.0)
[2025-03-18 15:24] LABS: Alanine Aminotransferase 42 U/L (6-50); Albumin Level 4.0 g/dL (3.5-5.1); Alkaline Phosphatase 89 U/L (38-126); Anion Gap 8 mmol/L (4-12); Aspartate Amino Transferase 36 U/L (17-59); Bilirubin,Total 1.1 mg/dL (0.2-1.3); Blood Urea Nitrogen 18 mg/dL (9-20); Calcium 8.8 mg/dL (8.4-10.2); Carbon Dioxide 24 mmol/L (22-30); Chloride 101 mmol/L (98-107); Estimated CRCL calculation 105 ml/min; Estimated Glomerular Filt Rate > 60; Glucose 111 mg/dL (65-110); Lipase 27 U/L (23-300); Potassium 4.3 mmol/L (3.4-5.0); Sodium 133 mmol/L (137-145); Total Protein 7.3 g/dL (6.3-8.2)
[2025-03-18 15:37] LABS: Band Neutrophils Percent 4 % (0-6); Lymphocytes Absolute Manual 1.45 K/mm3 (1.1-4.5); Lymphocytes Percent Manual 18 % (18-44); Monocytes Absolute Manual 1.53 K/mm3 (0.1-0.90); Monocytes Percent Manual 19 % (3-9); Neutrophils Absolute Manual 5.10 K/mm3 (1.3-6.7); Neutrophils Percent Manual 59 % (46-73); Schistocytes None Seen; Total Cells Counted 100
[2025-03-18 15:38] LABS: Influenza A QL RT-PCR Negative (Negative); Influenza B QL RT-PCR Negative (Negative); RSV RNA, RT-PCR Negative (Negative); SARS-CoV-2 RNA PCR Negative (Negative)
[2025-03-18] MEDS: LACTATED RINGERS 1,000 ML 999 ML IV CONT (18:41)
[2025-03-18] MEDS: KETOROLAC 15 MG/ML VIAL (*BKC) IV PUSH (18:44)
[2025-03-18] MEDS: METOCLOPRAMIDE HCL INJ 10 MG/2 ML VIAL IV PUSH (18:44)
[2025-03-18 19:20] LABS: Cannabinoid Screen Urine Negative (Negative)
== END 2025-03-18 20:31 | disposition home or self-care (01) ==
PROVIDERS: Registered Nurse; Emergency Provider Emergency Medicine; PCP Internal Medicine
DX: R11.2 Nausea with vomiting, unspecified (principal); Z20.822 Contact with and (suspected) exposure to COVID-19; E78.5 Hyperlipidemia, unspecified; Z87.891 Personal history of nicotine dependence; Z79.899 Other long term (current) drug therapy; R93.3 Abnormal findings on diagnostic imaging of other parts of digestive tract
CPT/HCPCS: 36415; 74177; 80053; 80307; 83690; 85025; 87637; 96361; 96374; 96375; 99284; J1885; J2765; J7120; Q9967

== ENCOUNTER 2025-04-11 15:07 | Outpatient (CLI) | payer OTHER, SELFPAY ==
--- OUTSIDE RECORDS SUMMARY | 2025-04-11 15:11 | XMS_ITS | Clinical Summary ---
Author Organization [facility] Address [facility] [place] [address] Care Team Providers Care Seals Engraver Name Role Phone Harjit Wesley MD Primary Care Provider [phone] Allergies No known active allergies Medications diclofenac [...] 4:19 PM CDT Height 185.4 cm (6' 1) 03/01/2022 4:19 PM CDT Body Mass Index 30.21 03/01/2022 4:19 PM CDT Plan of Treatment Health Maintenance Due Date Last Done Comments Colorectal Cancer Screening Colonoscopy (10 Years) 1961 Annual Physical 1964 Hepatitis C 12/15/1979 DTaP, Tdap and Td Vaccines ( 1 - Tdap) 1980 Pneumococcal Vaccine: 50+ Years (1 of 1 - PCV) 12/15/2011 Zoster Vaccines (1 of 2) 12/15/2011 COVID-19 Vaccine (3 - 2024-2 6 season) 2025 12/17/2021, 11/26/2021 Influenza Adult (#1) 2025 RSV Immunization or 60+ Years (1 - 1-dose 75+ series) 2036 Hepatitis A Vaccines Aged Out No long er eligible based on patient's age to complete this topic Meningococcal B Vaccine Aged Out No l [...] perform ADLs independently General No Jenna Miner, [facility] Insurance [facility] Advance Directives * Full Code (Latest Code Status on File) Date Activated Date Inactivated Comments 12/17/2021 10:15 PM 12/22/2021 6:49 PM Care Teams Seals Engraver Relationship Specialty Start Date End Date Harjit Wesley MD [address] [place] [phone] PCP - General INTERNAL MEDICINE 12/17/21
--- OUTSIDE RECORDS SUMMARY | 2025-04-11 15:11 | XMS_ITS | Encounter Summary ---
Author Organization [facility] Address [address] [place] [address] Care Team Providers Care Senior Sales Director Name Role Phone Harjit Wesley MD Primary Care Provider [phone] Harjit Wesley MD Unavailable Encounter Details Date Type Department Care Team (Late st Contact Info) Description 04/09/2025 Telephone [facility] [address] [phone] Nader Veláz[place] [address] [address] Social History Tobacco Use Types Packs/Day Years Used Date Smoking Tobacco: Former Cigarettes Sex and Gender Information Value Date Recorded Sex Assigned at Not on file 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
--- OUTSIDE RECORDS SUMMARY | 2025-04-11 15:11 | XMS_ITS | Clinical Summary ---
Author Organization [facility] [address] Address [address] [place] [address] Care Team Providers Care Analytics Director Name Role Phone Harjit Wesley MD Primary Care Provider [phone] Harjit Wesley MD Unavailable [phone] Allergies No known active allergies Medications [...] (1,000 mg total) by mouth daily Active [id number] op-herb#222 (Stages Men's Multi-Vitamin) 200 mcg-300 unit-20 mcg tablet Take by mouth Active Active Problems Problem Noted Date Diagnosed Date Primary osteoarthritis of left knee 01/08/2025 Encounters Date Type Department Care Team Description 04/09/2025 Telephone [facility] [address] [place] [phone] Nader Velázquez II, MD 02/14/2025 Telephone [facility] 2 [facility] A, [address]. 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 Gender Identity Not on file Sexual Orientation Not on file Obstetrics History Last Filed Vital Signs Vital Sign Reading Time Taken Comments Blood Pressure 133/91 01/08/2025 4:18 PM CDT Pulse 82 01/08/2025 4:18 PM CDT Temperature - - Respiratory Rate - - Oxygen Saturation 96% 05/01/2014 2:24 PM LOCOMOTIVE OBSERVER Inhaled Oxygen Concentration - - Weight 111.1 [...] 04/03/2014, 03/21/2014, Additional history exists Covid-19 Vaccine (3 - season) 2025 12/17/2021, 11/26/2021 Influenza Vaccine (#1) 2025 , 03/20/2023, 02/25/2022 Zoster Vaccine Completed 06/26/2020, 04/08/2020 Pneumococcal vaccine <65 Aged Out No longer eligible based on patient's age to complete this topic Procedures Procedure Name Priority Date/Time Associated Diagnosis Comments COLONOSCOPY IMAGES 04/03/2014 from Last 3 Months or Most Recently Relevant to Health Maintenance Results * COLONOSCOPY IMAGES (04/03/2014) Anatomical Region Laterality Modality Other Narrative 04/03/2014 Ordered by an unspecified provider. us Historical Provider GI PROCEDURE ORDERABLES F inal Result from Last 3 Months or Most Recently Relevant to Health Maintenance Insurance [facility] Care Teams Analytics Director Relationship Specialty Start Date End Date Harjit Wesley MD [address] [place] [address] PCP - General Internal Medicine 08/13/24 Harjit Wesley MD [address] [place] [address] 08/13/24
== END 2025-04-11 15:08 | disposition home or self-care (01) ==
LOC: ANHLAB 15:09
PROVIDERS: PCP Internal Medicine; Visit Provider Anesthesiology
DX: K40.20 Bilateral inguinal hernia, without obstruction or gangrene, not specified as recurrent (principal)
CPT/HCPCS: 36415; 86850; 86900; 86901

== ENCOUNTER 2025-04-16 02:10 | Day surgery (SDC) | payer OTHER, SELFPAY ==
[2025-04-11 13:02] VITALS: BMI 32.1
--- NOTE | 2025-04-11 13:04 | PC.NURSE ---
[facility] has started construction of its new state of the art ER which will open Spring 2026. With this, we anticipate parking may be a challenge for some our surgical patients and families. Parking spaces are limited but are available for all Surgical, obstetrics, and ER patients sharing this lot. If you arrive and find you are having a hard time finding a parking space, please note that we understand the challenges, please drive around the hospital and park near Hospital Entrance 1. When you enter this entrance, you can ask a volunteer to direct or take you back to the surgical waiting area to check in. We appreciate everyone?s understanding of these expected challenges while we build for your future. Report to the Outpatient Waiting Room, entrance under the green pavilion located off [address], at time _0930_ on date _[id number]_. Planned Procedure Time: _1130_.? Time changes happen often and if your time is changed the preop area will call you the afternoon before. - You and your visitor will be asked to self-screen and do not enter if you have any COVID symptoms. Please call surgeon if you need to reschedule. - A mask is optional within the hospital at this time. Patients may have clear liquids (water, carbonated beverages, clear teas, apple juice) until 3 hours prior to surgery with a maximum of 20 ounces. - No food from midnight until time of surgery and no smoking, or chewing tobacco (or any form of nicotine). No chewing gum, candy or mints. Take only the following medications with a SIP of water on the morning of surgery: __Duloxetine DO NOT STOP ANY OF YOUR OTHER PRESCRIPTION MEDICATIONS PRIOR TO SURGERY EXCEPT THE FOLLOWING Hold all vitamins and supplements for 3 days per anesthesiologist. Medications to discontinue per physician Call Dr Dee's office and ask about Diclofenac. Date to take last dose____ Please no make-up, nail sao tomean, hairspray, perfume, deodorant, or body powder the day of surgery.? No jewelry (including any body piercings) or valuables the day of surgery, leave them at home.? Please take a shower or bath the night before, or the morning of, surgery with an antibacterial soap.? Wear comfortable, loose fitting clothing.? - Jewelry must be removed prior to entering the operating room.? Rings and piercings that are not removed may be cut off. - The hospital will not accept responsibility for valuables.? - Please leave all valuables, including medications, at home the day of surgery. If you are going home after surgery, a licensed oil truck driver must drive you home.? - NO public transportation without another adult if you receive anesthesia. - We recommend that an adult stay with you for 24 hours following discharge. - We also recommend that you do not drive, make important decision, drink alcoholic beverages, or take any drugs that were not prescribed by your health care provider for at least 24 hours after your discharge time. Follow any additional instructions given to you from your surgeon. Telephone instructions given to __Lewis__and asked if any additional questions and then verbalized understanding. Patient advised to call surgeon office or pre surgery nurse liaison [phone] if any additional questions.
[2025-04-16] VITALS (9 sets, daily range): BP systolic 109–145; BP diastolic 72–92; PULSE 63–82; RESP 10–17; TEMP 36.4–36.6; O2SAT 95–99; BMI 32.5
--- OUTSIDE RECORDS SUMMARY | 2025-04-16 02:12 | XMS_ITS | Continuity of Care Document ---
Author Name [facility] Organization [facility] Care Team Providers Care Sap Pi Developer Name Role Phone [facility] Unavailable Unavailable Encounters Combined list of: 1) Encounters from Department of Veterans Affairs facilities going backup to the last 18 months, not all [place] inpatient encounters are included; 2) Encounters from the Department of [facility] facilities going backup to 280 months. Location Location Details Encounter Type Encounter Number Reason For Visit Attending Provider ADM Date DC Date Status Disposition Source [facility] Outpatient Encounter [id number] 7 01/08 [facility] Procedures Combined list of: 1) Procedures from [facility] of [facility] facilities going back up to thelast 18 months, not all NH non-surgical procedures are included; 2) All procedures from the Department of [facility] facilities. Procedure Procedure Type Code Date Perfomer Comments Manda martinez FAMILY PSYCHOTHERAPY (CONJOINT PSYCHOTHERAPY) (WITH PATIENT PRESENT), [address] MINUTES 04/26/2000 [facility] PURE TONE AUDIOMETRY (THRESHOLD); AIR ONLY 09/15/2004 [facility] SKIN TEST; TUBERCULOSIS, INTRADERMAL 03/19/2004 [facility] Social History Combined list of available smoking, tobacco, and other social history from Department of Defense and Veterans Affairs facilities. Social History Type Response Date Comment Manda martinez This section is an empty social history section. [facility]
--- OUTSIDE RECORDS SUMMARY | 2025-04-16 02:13 | XMS_ITS | Clinical Summary ---
Author Organization [facility] Address [facility] [place] [address] Care Team Providers Care Clinical Quality Rn Name Role Phone Harjit Wesley MD Primary Care Provider [phone] Allergies No known active allergies Medications diclofenac [...] perform ADLs independently General No Jenna Miner, [facility] Insurance [facility] Advance Directives * Full Code (Latest Code Status on File) Date Activated Date Inactivated Comments 12/17/2021 10:15 PM 12/22/2021 6:49 PM Care Teams Clinical Quality Rn Relationship Specialty Start Date End Date Harjit Wesley MD [address] [place] [phone] PCP - General INTERNAL MEDICINE 12/17/21
--- NOTE | 2025-04-16 08:53 | WPDHPUPDATE1 ---
History and Physical Update Update Date/Time: 04/16/25 08:53 History and Physical has been reviewed, including an updated exam of the patient. There are NO changes in the patient's condition. Risks, benefits, and alternatives have been discussed and questions answered. Patient agrees to proceed with procedure.
[2025-04-16] MEDS: LACTATED RINGERS 1,000 ML 30 ML IV CONT ×2 (09:30→12:35)
[2025-04-16] MEDS: KETOROLAC 15 MG/ML VIAL (*BKC) IV PUSH (09:47)
[2025-04-16] MEDS: ACETAMINOPHEN 500 MG TABLET 1000 MG PO (09:47)
--- NOTE | 2025-04-16 09:54 | WPDANESEPPF ---
Anes - Initial Pre Proc Eval Procedure: Operation Date: 04/16/25 11:30 Proposed Procedures p Laparoscopic Bilateral Inguinal Hernia Repair with Mesh, Davinci Assisted - Andrei Dee DO Date/Time: 04/16/25 09:54 Surgeon: Andrei Dee DO Pre Op Diagnosis: bilat inguinal hernia Patient Data Age: 64 Gender: M Height: 1.8 m Weight: 104.5 kg Allergies Allergy/AdvReac Type Severity Reaction Status Date / Time No Known Allergies Allergy Verified 04/11/25 12:52 Home Medications ?Medication ?Instructions ?Recorded ?Confirmed ?Type diclofenac sodium 75 mg 75 mg PO BID 09/07/22 04/14/25 History tablet,delayed release multivitamin (Daily Multi-Vitamin 1 tablet PO DAILY 09/07/22 04/14/25 History tablet) simvastatin 10 mg tablet 10 mg PO DAILY 09/07/22 04/14/25 History duloxetine 30 mg capsule,delayed 90 mg PO DAILY 04/11/25 04/14/25 History release laura (Zingiber officinalis) 250 250 mg PO DAILY 04/11/25 04/14/25 History mg capsule Patient hx anesthesia problems: none Family hx anesthesia problems: none Results Review: All pre-operative results and documents have been reviewed as part of the pre-operative evaluation. [facility]LY [facility] Past Medical History Medical History Hyperlipidemia Uvular hypertrophy Dysphagia Abscess, appendix 2016 or 2017 Wears glasses Seasonal allergies Left knee pain Surgical History Surgical History H/O sinus surgery History of tonsillectomy Family History Family History Other Family history of allergic disorder Social History Social History Social History: Caffeine-daily Smoking packs per day: 0.5 Smoking cigarettes per day: 10.0 Years smoked: 20 Smoking pack-years: 10.00 Smoking status: Former smoker Tobacco type: cigarettes Smoking end date: 04/11/22 Alcohol intake: never Substance use: former Substance use type: marijuana Other substance usage details: 30 years ago. Lack of Transportation: No Lack of Food: Never True Current Housing: I Have Housing Concerned About Future Housing: No Difficulty Paying Gas/Electric Bills: No Difficulty Paying for Meds: No Currently Unemployed: No Education: Bachelor's Degree Difficulty w/ Childcare or Family Care: No Living arrangements: with family Occupation/Education: occupation Gender identity (if verbalized by the patient): Male Spiritual care concerns: No Anes - Eval Final PreProcedure Day of Procedure 04/16/25 09:54 Patient weight: obese Heart: regular rate and rhythm Lungs: decreased breath sounds Airway: Mallampati scale class II Neurological: alert and oriented Last oral intake: >/= 8 hours ASA classification: III Emergent: no Anesthetic plan: proceed Anesthesia type and monitoring: general ETT and standard monitoring Results Review: All pre-operative results and documents have been reviewed as part of the pre-operative evaluation. Informed Consent: The patient's anesthetic plan and its attendant risks and benefits were discussed with the patient/family/POA. Questions were solicited and answers provided to the satisfaction of the patient/family/POA.
[2025-04-16] MEDS: ceFAZolin 2 GM in SODIUM CHLORIDE 0.9% IV 50 ML 100 ML IVPB (10:25)
[2025-04-16] MEDS: BUPIVACAINE/EPINEPHRINE 0.5% 50 ML VIAL 30 ML INFILTRATE (10:52)
--- NOTE | 2025-04-16 12:02 | P.OP_ITS ---
Procedure Note - Detailed Date of Procedure 04/16/25 Pre-op Diagnosis bilateral inguinal hernia Post-op Diagnosis Same (indirect RIH, small indirect LIH) Procedure Performed Laparoscopic bilateral inguinal hernia repair with mesh, da Mikael assisted Surgeon Andrei Dee DO [employer] Eduard Silva, DO Anesthesia General and Local (0.5% bupivacaine with epinephrine) Indications This is a 64-year-old man who presented with a right groin pain and bulge that he 1st noticed of about a month ago. He had gone to the emergency department for abdominal pain and was found to have a moderate-sized right inguinal hernia as well as a small left inguinal hernia. He then followed up in the office and further discussions were made with the patient about treatment options. The decision was made to proceed with robotic assisted laparoscopic bilateral inguinal repair with mesh. Findings Robotic assisted laparoscopic bilateral inguinal hernia repair with mesh was performed. The patient was found to have a medium-sized indirect right inguinal hernia containing preperitoneal fat. The hernia sac was fairly large and there was a large amount of fatty tissue going up along with the hernia sac. On the left side he was found to have a very small indirect left inguinal hernia. A robotic transabdominal preperitoneal approach was utilized for repair. Once a wide enough preperitoneal pocket was created on each side and the hernia sacs we re reduced, I then placed large 3DMax mid mesh overlying each myopectineal orifice. Description of Procedure Procedure as well as risks, benefits, and alternatives were discussed with the patient. Written consent was obtained and placed in chart prior to procedure. Patient was brought back to surgical suite. He was placed supine on operating table. Time-out was done to confirm patient and procedure. He was then intubated by Anesthesia Department. His abdomen was prepped and draped in sterile fashion using chlorhexidine prep. 0.5% bupivacaine with epinephrine was infiltrated at each location for incision. An 8 mm incision was made in the left lateral abdomen, and a 5 mm Optiview trocar was advanced through the abdominal layers under direct visualization. Once inside the abdominal cavity, carbon dioxide insufflation was used to create a pneumoperitoneum. A camera was inserted and the abdominal cavity was inspected. The patient was placed in slight Trendelenburg position. An 8 millimeter incision was made on the right lateral abdomen and an 8 millimeter trocar was inserted under direct visualization. Another 8 millimeter incision was made just superior to the umbilicus and an 8 millimeter trocar was inserted under direct visualization. The 5 mm port was then removed and this was replaced with another 8 mm robotic port. The robotic arms were brought up to the patient's bedside and secured to the ports. The camera and instruments were inserted. I then moved over to the robotic console and took control of the camera and instruments. After careful inspection of the abdominal cavity, I began scoring the peritoneum along the right lower quadrant using scissors with electrocautery. The preperitoneal plane was entered and this was carefully dissected caudally along the inferior epigastric vessels. Careful dissection with scissors with electrocautery and blunt dissection was used to continue this dissection. I dissected far enough laterally to allow for mesh placement, and also dissected medially to identify the pubic arch and Cliff's ligament. The hernia sac was identified and carefully dissected posteriorly. The cord contents were also identified and the peritoneum was carefully dissected far enough posteriorly to allow for mesh placement. Once an adequate pocket was created, I then placed the mesh within the preperitoneal pocket and carefully unfolded it. The mesh was centered on the hernia defect with adequate overlap circumferentially. The inferior edge of the mesh was inspected to ensure that it was far enough away from the peritoneal edge. The mesh appeared in proper position overlying the entire myopectineal orifice. The mesh was secured using 3-0 Vicryl simple interrupted sutures in Cliff's ligament, the superior medial edge, and superior lateral edge of the mesh. The peritoneum was then closed over the mesh using a 3-0 V-lock running absorbable suture. I then began scoring the peritoneum along the left lower quadrant using scissors with electrocautery. The preperitoneal plane was entered and this was carefully dissected caudally along the inferior epigastric vessels. Careful dissection with scissors with electrocautery and blunt dissection was used to continue this dissection. I dissected far enough laterally to allow for mesh placement, and also dissected medially to identify the pubic arch and Cliff's ligament. The hernia sac was identified and carefully dissected posteriorly. The cord contents were also identified and the peritoneum was carefully dissected far enough posteriorly to allow for mesh placement. Once an adequate pocket was created, I then placed the mesh within the preperitoneal pocket and carefully unfolded it. The mesh was centered on the hernia defect with adequate overlap circumferentially. The inferior edge of the mesh was inspected to ensure that it was far enough away from the peritoneal edge. The mesh appeared in proper position overlying the entire myopectineal orifice. The mesh was secured using 3-0 Vicryl simple interrupted sutures in Cliff's ligament, the superior medial edge, and superior lateral edge of the mesh. The peritoneum was then closed over the mesh using a 3-0 V-lock running absorbable suture. The robotic instruments were removed. The robotic arms were disengaged from the ports and moved away from the bedside. The patient was flattened out in bed, the ports were removed under direct visualization, and the pneumoperitoneum was released. The skin of the incisions was approximated using 4-0 Monocryl subcuticular suture, and Exofin glue was applied on top. The patient was awakened from anesthesia, extubated, and transferred to recovery. Implants Large right and left 3DMax mid mesh Estimated Blood Loss 5 Complications No immediate complications Condition Stable Disposition Same day [facility] Billing Surgery - Charge Forward: Surgery Billing
[2025-04-16] MEDS: ONDANSETRON INJ 4 MG/2 ML VIAL IV PUSH (13:52)
[2025-04-16] MEDS: oxyCODONE HCL (*CRX) 5 MG TAB IR PO (15:19)
== END 2025-04-16 15:28 | disposition home or self-care (01) ==
PROVIDERS: PCP Internal Medicine; Visit Provider Surgery
PROC: 8E0Y4CZ Robotic Assisted Procedure of Lower Extremity, Percutaneous Endoscopic Approach (ICD-10-PCS; CPT 49650; principal; 2025-04-16 11:30)
DX: E78.5 Hyperlipidemia, unspecified (principal); F12.90 Cannabis use, unspecified, uncomplicated; E66.9 Obesity, unspecified; Z68.32 Body mass index [BMI] 32.0-32.9, adult; Z98.890 Other specified postprocedural states; Z87.891 Personal history of nicotine dependence
CPT/HCPCS: 49650; S2900; J0690; A9270; C1781; J1100; J1885; J2003; J2250; J2405; J2704; J3010; J7030; J7120

== ENCOUNTER 2025-05-03 07:57 | Outpatient (CLI) | payer OTHER, SELFPAY ==
[2025-05-03 08:12] LABS: Add Urine Microscopic? YES; Appearance Urine Cloudy (Clear); Glucose Urine UA Negative (Negative); Leukocyte Esterase Ur 3+ (Negative); Nitrate Urine Negative (Negative); Specific Grav Ur 1.015 (1.010-1.020)
== END 2025-05-03 07:58 | disposition home or self-care (01) ==
LOC: CHSLAB 07:59
PROVIDERS: PCP Internal Medicine; Visit Provider Internal Medicine
DX: N39.0 Urinary tract infection, site not specified (principal)
CPT/HCPCS: 81001; 87077; 87086; 87088; 87186